=== PATIENT | male | born 1965 | race Caucasian/White ===

== ENCOUNTER → 2016-12-21 | Outpatient (CLI) | payer BC, OTHER ==
[~2016-12-21] MED LIST: AMOX500C3 PO; ASPI81TA28 PO; CIPR1TAB11 PO; CRAN1CAP15 PO; DIGO0.1219 PO; METO-157 PO; NITR1CAP32 PO; SODI1ENE PR
[2016-12-21 16:30] LABS: URINE APPEARANCE CLEAR (CLEAR); URINE BILIRUBIN NEG (NEG); URINE COLOR YELLOW; URINE NITRITE NEG (NEG); URINE SPECIFIC GRAVITY 1.009 (1.000-1.030); UROBILINOGEN NEG (NEG)
[2016-12-21 16:33] LABS: MANUAL MICROSCOPIC REQUIRED? NO; REVIEW REQ? NO
== END | disposition home or self-care (01) ==
LOC: C.LABSPEC 14:28
PROVIDERS: ATTEND Internal Medicine Infectious Disease
DX: N39.0 Urinary tract infection, site not specified (principal)

== ENCOUNTER → 2017-01-03 | Outpatient (CLI) | payer BC, OTHER ==
[2017-01-03 09:42] LABS: URINE APPEARANCE CLEAR (CLEAR); URINE BILIRUBIN NEG (NEG); URINE COLOR YELLOW; URINE EPITHELIAL CELL AUTO 20-30 /lpf (0-5); URINE NITRITE NEG (NEG); URINE SPECIFIC GRAVITY 1.018 (1.000-1.030); UROBILINOGEN NEG (NEG)
[2017-01-03 09:43] LABS: MANUAL MICROSCOPIC REQUIRED? NO; REVIEW REQ? NO
== END | disposition home or self-care (01) ==
LOC: C.LABSPEC 08:52
PROVIDERS: ATTEND Family Medicine
DX: A49.8 Other bacterial infections of unspecified site (principal)

== ENCOUNTER 2017-01-21 16:29 | Inpatient (IN) | payer BC, OTHER ==
[~2017-01-21] VITALS: Ht 193 cm; Wt 61.6 kg
[~2017-01-21 16:29] MED LIST changes: -AMOX500C3 PO; -METO-157 PO; -NITR1CAP32 PO
[2017-01-21] MEDS ORDERED: SODIUM CHLORIDE 0.9% 1000ML 500 ML IV ONE ×2 (16:42)
[2017-01-21] MEDS ORDERED: CEFEPIME IV 2,000 MG in DEXTROSE 5% 100ML 100 ML IV STA (16:57)
[2017-01-21] MEDS ORDERED: DAPTOmycin IV 350 MG in SODIUM CHLORIDE 0.9% 50ML 50 ML IV STA (16:59)
[2017-01-21] MEDS ORDERED: AMOX500C3 PO (17:10)
--- NOTE | 2017-01-21 17:11 | EMERGENCY ROOM VISIT NOTE ---
History Report prepared by Pilar: Mile Sweet Under the Supervision of: Dr. Belem Schuler M.D. First contact with patient: 16:35 Chief Complaint: URINARY SYMPTOMS Stated Complaint: UTI Nursing Triage Summary: UTI for one year. "Sore bladder. Sediment every once in a while." Scope sceduled 01/31 with Gavin BARRAZA. History of Present Illness The patient is a 51 year old male who presents to the Emergency Room with complaints of a worsening UTI beginning SUPPLIER QUALITY ENGINEER. The patient reports feeling nauseated last night and dry heaving. He is quadriplegic and catheterizes daily. He states that last night they had difficulty catheterizing him and he reports some sediment in his urine. He states that his bladder feels sore. The patient also reports feeling generally tired and he has a headache. This morning he had a fever with a temperature of 101. He took Tylenol for his fever at 1230. The patient denies cough and shortness of breath. His stool has been normal. He currently rotates 3 antibiotics as preventative treatment for his frequent UTIs. These antibiotics are amoxicillin, Cipro, and Macrobid. He was supposed to start the Macrobid yesterday, and he took one pill last night. This morning since he was not feeling well he took the amoxicillin instead. The patient rates his current pain as a 2/10 in severity. Source of History: patient, parent Onset: SUPPLIER QUALITY ENGINEER Position: other (urinary) Symptom Intensity: 2/10 Quality: other (soreness) Timing: worsening Modifying Factors (Worsening): urination Modifying Factors (Relieving): tylenol Associated Symptoms: + fatigue, + fevers, + headache, + nausea, + vomiting Review of Systems See HPI for pertinent positives & negatives. A total of 10 systems reviewed and were otherwise negative. Past Medical & Surgical Medical Problems: (1) Autonomic dysfunction (2) Fever (3) History of recurrent UTIs (4) Hypotension (5) Neurogenic bladder (6) Paroxysmal atrial fibrillation (7) Quadriplegia following spinal cord injury Family History FH: CAD (coronary artery disease) FATHER GRANDFATHER Social History Smoking Status: Never Smoker Drug Use: none Marital Status: single Housing Status: lives with family Occupation Status: employed Current/Historical Medications Scheduled Amoxicillin (Amoxil), 500 MG PO TID Aspirin (Aspirin Ec), 81 MG PO DAILY Cranberry-Vitamin C-Vitamin E (Cranberry), 2 CAP PO TID Digoxin (Digox), 0.125 MG PO DAILY Metoclopramide (Reglan), 10 MG PO ACHS Nitrofurantoin Macrocrystals (Macrodantin), 100 MG PO BID Sodium Phosphates (Fleet Enema Six Pack), 19 GM [place] Q2D Allergies Coded Allergies: Bacitracin (Verified Allergy, Unknown, blisters, 07/17/16) Iodinated Diagnostic Agents (Verified Allergy, Unknown, UNKNOWN, 07/17/16) Neomycin (Verified Allergy, Unknown, blisters, 07/17/16) Polymyxin B (Verified Allergy, Unknown, blisters, 07/17/16) Quinolones (Verified Allergy, Unknown, cipro OK SUPPLIER QUALITY ENGINEER [id number], 07/17/16) Physical Exam Vital Signs Date Time Temp Pulse Resp B/P Pulse Ox O2 Delivery O2 Flow Rate FiO2 01/21/17 18:45 36.9 01/21/17 18:22 55 16 131/104 96 Room Air 01/21/17 17:56 01/21/17 17:54 58 20 103/63 94 Room Air 01/21/17 17:10 49 01/21/17 17:10 93 Room Air 01/21/17 16:32 37.0 72 16 68/42 97 Room Air Physical Exam Vital signs reviewed. General: Cachetic-appearing 51 year old male, in no significant distress. HEENT: No scleral icterus, PERRLA, neck supple. Atraumatic. Cardiovascular: Regular rate and rhythm, no extra sounds. Pulmonary: Clear to auscultation bilaterally, normal work of breathing. Abdomen: Soft, nontender, nondistended, positive bowel sounds. Musculoskeletal: Atraumatic, chronic deformity of the right lower extremity distally. Neurologic: Patient awake alert and oriented x 3. Cranial nerves 2 through 12 grossly intact. Patient has some movement of the bilateral upper extremities and is paralyzed from the mid chest distally. Skin: Warm, dry, no rash Medical Decision & Procedures ER Provider Diagnostic Interpretation: Radiology results as stated below per my review and radiologist interpretation: SINGLE VIEW CHEST CLINICAL HISTORY: Sepsis. FINDINGS: 2 AP, portable, upright chest radiographs are compared to study dated 07/17/2016. Correlation is made with abdominal CT dated 07/11/2016. The examination is degraded by portable technique and patient rotation. The cardiomediastinal silhouette is normal for projection. Apparent enlargement the cardiac silhouette is related to a pectus deformity. Scarring at the left lung base is unchanged. Pulmonary hyperinflation is again noted and emphysematous change is suspected. No airspace consolidation or large pleural effusion is identified. No pneumothorax is seen. The bony thorax is grossly intact. IMPRESSION: No acute cardiopulmonary abnormality and no significant change from 07/17/2016. Electronically signed by: Tobin Noel M.D. 01/21/2017 5:08 PM Dictated Date/Time: 01/21/2017 5:06 PM Laboratory Results Test 01/21/17 17:25 01/21/17 17:33 01/21/17 17:35 Urine Color YELLOW Urine Appearance CLEAR (CLEAR) Urine pH 7.5 (4.5-7.5) Urine Specific [place] 1.007 (1.000-1.030) Urine Protein NEG (NEG) Urine Glucose (UA) NEG (NEG) Urine Ketones NEG (NEG) Urine Occult Blood NEG (NEG) Urine Nitrite NEG (NEG) Urine Bilirubin NEG (NEG) Urine Urobilinogen NEG (NEG) Urine Leukocyte Esterase NEG (NEG) Urine WBC (Auto) 1-5 /hpf (0-5) Urine RBC (Auto) 10-30 /hpf (0-4) Urine Hyaline Casts (Auto) 0 /lpf (0-5) Urine Epithelial Cells (Auto) 20-30 /lpf (0-5) Urine Bacteria (Auto) NEG (NEG) Bedside Lactic Acid Venous 0.56 mmol/L (0.90-1.70) Immature Granulocyte % (Auto) 0.0 % White Blood Count 4.71 K/uL (4.8-10.8) Red Blood Count 4.20 M/uL (4.7-6.1) Hemoglobin 11.8 g/dL (14.0-18.0) Hematocrit 35.5 % (42-52) Mean Corpuscular Volume 84.5 fL (80-100) Mean Corpuscular Hemoglobin 28.1 pg (25-34) Mean Corpuscular Hemoglobin Concent 33.2 g/dl (32-36) Platelet Count 137 K/uL (130-400) Mean Platelet Volume 11.2 fL (7.4-10.4) Neutrophils (%) (Auto) 77.5 % Lymphocytes (%) (Auto) 7.0 % Monocytes (%) (Auto) 10.2 % Eosinophils (%) (Auto) 4.7 % Basophils (%) (Auto) 0.6 % Neutrophils # (Auto) 3.65 K/uL (1.4-6.5) Lymphocytes # (Auto) 0.33 K/uL (1.2-3.4) Monocytes # (Auto) 0.48 K/uL (0.11-0.59) Eosinophils # (Auto) 0.22 K/uL (0-0.5) Basophils # (Auto) 0.03 K/uL (0-0.2) Immature Granulocyte # (Auto) 0.00 K/uL (0.00-0.02) Prothrombin Time 12.9 SECONDS (9.0-12.0) Prothromb Time International Ratio 1.2 (0.9-1.1) Activated Partial Thromboplast Time 30.2 SECONDS (21.0-31.0) Partial Thromboplastin Ratio 1.2 Total Bilirubin 2.0 mg/dl (0.2-1) Aspartate Amino Transf (AST/SGOT) 14 U/L (15-37) Alanine Aminotransferase (ALT/SGPT) 14 U/L (12-78) Alkaline Phosphatase 57 U/L (45-117) Total Protein 6.5 gm/dl (6.4-8.2) Albumin 3.5 gm/dl (3.4-5.0) Globulin 3.0 gm/dl (2.5-4.0) Albumin/Globulin Ratio 1.2 (0.9-2) Procalcitonin < 0.05 ng/mL (0-0.5) Digoxin Level 0.6 ng/ml (0.8-2.0) Laboratory results per my review. Medications Administered Medications (Trade) Dose Ordered Sig/Valeria Route Start Time Stop Time Status Last Admin Dose Admin Sodium Chloride 500 ml @ 999 mls/hr Q31M ONCE IV 01/21/17 16:42 01/21/17 17:12 DC 01/21/17 17:48 999 MLS/HR Sodium Chloride 500 ml @ 999 mls/hr Q31M ONCE IV 01/21/17 16:42 01/21/17 17:12 DC 01/21/17 17:53 999 MLS/HR Cefepime HCl 2000 mg/Dextrose 122.6 ml @ 200 mls/hr NOW STAT IV 01/21/17 16:57 01/21/17 17:33 DC 01/21/17 18:43 200 MLS/HR Daptomycin/Sodium Chloride (Cubicin IV/Nss 50ml) 57 ml @ 100 mls/hr NOW STAT IV 01/21/17 16:59 01/21/17 17:33 DC 01/21/17 18:02 100 MLS/HR ECG Indication: nausea Rate (beats per minute): 50 Rhythm: sinus bradycardia Findings: RBBB (incomplete), other (right axis deviation) ED Course 1635: Past medical records reviewed. The patient was evaluated in room A4B. A complete history and physical examination was performed. 1642: NSS 500 ml @ 999 mls/hr IV, NSS 500 ml @ 999 mls/hr IV 1657: Cefepime HCl 2000 mg/Dextrose 122.6 ml @ 200 mls/hr IV 165: Daptomycin 350 mg/Sodium Chloride 57 ml @ 100 mls/hr IV 182: I reassessed the patient at this time. He is feeling better and resting comfortably. I discussed the results and treatment plan with the patient. I answered all pertaining questions that he had. He expressed understanding and verbalized agreement. 184: I spoke with Varsha Perera PA-C. We discussed the patient's results and treatment plan. The patient will be evaluated by the [facility] for further management. Medical Decision Differential diagnoses includes influenza, other viral illness, pneumonia, urinary tract infection, metabolic abnormality, medication effect, cellulitis, meningitis, intra-abdominal source. This patient was evaluated and appeared to be in no significant distress. Physical examination reveals a marked hypotension with a systolic pressure in the 60s. Blood cultures were obtained and the patient was hydrated with normal saline solution. Laboratory work reveals a mild leukopenia. Patient's lactic acid is normal. BUN/creatinine are within normal range. Patient's EKG reveals a right bundle branch block. Patient was medicated with IV cefepime as the last 3 organisms grown from his urine are susceptible to cefepime. The patient was also given IV daptomycin for the possibility of an underlying sepsis. The patient was feeling much improved after IV hydration. I'm concerned due to the hypotension and reported fever. The patient seems to have stabilized his vital signs. He will be evaluated by the hospitalist service for admission and further management. He and his family are aware of the plan and agree. Consults Time Called: 1834 Consulting Physician: Varsha Perera PA-C Returned Call: 1841 I spoke with Varsha Perera PA-C. We discussed the patient's results and treatment plan. The patient will be evaluated by the [facility] for further management. Impression Primary Impression: Fever Additional Impressions: Hypotension Quadriplegia following spinal cord injury Critical Care I have personally spent greater than 30 minutes of critical care time in the direct management of this patient. This includes bedside care, interpretation of diagnostic studies, and testing, discussion with consultants, patient, and family members, and other required patient management activities. This 30 minutes is in excess of all separately billable procedures. Scribe Attestation The scribe's documentation has been prepared under my direction and personally reviewed by me in its entirety. I confirm that the note above accurately reflects all work, treatment, procedures, and medical decision making performed by me. Departure Information Dispostion Being Evaluated By Hospitalist Referrals Jarrell Bishop III, M.D. (PCP) Patient Instructions My [facility] Problem Qualifiers Primary Impression: Fever Fever type: unspecified Qualified Codes: R50.9 - Fever, unspecified Additional Impressions: Hypotension Hypotension type: unspecified hypotension type Qualified Codes: I95.9 - Hypotension, unspecified
[2017-01-21] MEDS ORDERED: NITR1CAP32 PO (17:12)
[2017-01-21] MEDS ORDERED: METO-157 PO (17:14)
[2017-01-21 18:00] LABS: BASO % 0.6 %; BASO ABS # 0.03 K/uL (0-0.2); COMPLETE YES; EOS % 4.7 %; HEMATOCRIT 35.5 % (42-52); LYMPH ABS # 0.33 K/uL (1.2-3.4); MEAN CELL VOLUME 84.5 fL (80-100); MEAN CORPUSCULAR HEMOGLOBIN 28.1 pg (25-34); MEAN CORPUSCULAR HGB CONC 33.2 g/dl (32-36); MEAN PLATELET VOLUME 11.2 fL (7.4-10.4); MONO % 10.2 %; NEUT % 77.5 %; PLATELET COUNT 137 K/uL (130-400); WHITE BLOOD COUNT 4.71 K/uL (4.8-10.8)
[2017-01-21 18:09] LABS: URINE APPEARANCE CLEAR (CLEAR); URINE BILIRUBIN NEG (NEG); URINE COLOR YELLOW; URINE EPITHELIAL CELL AUTO 20-30 /lpf (0-5); URINE NITRITE NEG (NEG); URINE PH 7.5 (4.5-7.5); URINE SPECIFIC GRAVITY 1.007 (1.000-1.030); UROBILINOGEN NEG (NEG); ZZURINE CULT IF INDIC CATH NO
[2017-01-21 18:09] LABS: ALT/SGPT 14 U/L (12-78); AST/SGOT 14 U/L (15-37); BLOOD UREA NITROGEN 6 mg/dl (7-18); BUN/CREATININE RATIO 15.5 (10-20); CALCIUM 8.6 mg/dl (8.5-10.1); CARBON DIOXIDE 30 mmol/L (21-32); CHLORIDE 108 mmol/L (98-107); CREATININE 0.41 mg/dl (0.60-1.40); GLUCOSE 99 mg/dl (70-99); POTASSIUM 3.7 mmol/L (3.5-5.1); SODIUM 145 mmol/L (136-145)
[2017-01-21 18:10] LABS: INR 1.2 (0.9-1.1); PARTIAL THROMBOPLASTIN RATIO 1.2; PROTHROMBIN TIME (PATIENT) 12.9 SECONDS (9.0-12.0)
[2017-01-21 18:12] LABS: ALB/GLOB RATIO 1.2 (0.9-2); ALKALINE PHOSPHATASE 57 U/L (45-117)
[2017-01-21 18:14] LABS: MANUAL MICROSCOPIC REQUIRED? NO; REVIEW REQ? NO
[2017-01-21] MEDS ORDERED: ACETAMINOPHEN 325 MG TAB PO PRN (19:15)
[2017-01-21] MEDS ORDERED: ONDANSETRON INJ 2 MG/ML 2 ML VIAL IV PRN (19:15)
--- NOTE | 2017-01-21 19:35 | History and Physical ---
History & Physical Date & Time of Service: Jan 21, 2017 at 19:21 Chief Complaint: UTI Primary Care Physician: Jarrell Bishop III, M.D. History of Present Illness Source: patient, family, clinic records, hospital records Patient seen and examined. 51 year old male with PMHx of quadriplegia, PAF and persistent UTIs presents to the ED complaining of urinary symptoms x 2 days. Patient is cathed daily and reports yesterday he started having bladder spasms, nausea, and one episode of vomiting. He reports today he feels lightheaded and very tired. He states his urine appeared concentrated. At home he took his temperature and it was 101. He took Tylenol and came to the ED. Patient is on rotating abx for chronic UTIs. He follows with infectious disease. He is currently taking Amoxil He denies URI symptoms, chest pain, SOB, diarrhea, rashes. On arrival patients SBP was 60, he had rigors. Lactate is normal, there is no leukocytosis, UA was clear CXR was without infection. He received IVFs and his BP improved. He empirically treated with cefepime and daptomycin for possible infection. He will be admitted for further workup and treatment. Past Medical/Surgical History Medical Problems: (1) Autonomic dysfunction Status: Chronic (2) History of recurrent UTIs Status: Chronic (3) Neurogenic bladder Status: Chronic (4) Paroxysmal atrial fibrillation Status: Chronic (5) Quadriplegia following spinal cord injury Status: Chronic Family History FH: CAD (coronary artery disease) FATHER GRANDFATHER Social History Smoking Status: Never Smoker Alcohol Use: none Drug Use: none Marital Status: single Housing status: lives with family Occupational Status: employed Immunizations History of Influenza Vaccine: Yes Multi-Drug Resistant Organisms History of MDRO: No Allergies Coded Allergies: Bacitracin (Verified Allergy, Unknown, blisters, 07/17/16) Iodinated Diagnostic Agents (Verified Allergy, Unknown, UNKNOWN, 07/17/16) Neomycin (Verified Allergy, Unknown, blisters, 07/17/16) Polymyxin B (Verified Allergy, Unknown, blisters, 07/17/16) Quinolones (Verified Allergy, Unknown, cipro 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 A total of 10 systems reviewed and were otherwise negative. Physical Exam Vital Signs Date Time Temp Pulse Resp B/P Pulse Ox O2 Delivery O2 Flow Rate FiO2 01/21/17 18:45 36.9 01/21/17 18:22 55 16 131/104 96 Room Air 01/21/17 17:56 01/21/17 17:54 58 20 103/63 94 Room Air 01/21/17 17:10 49 01/21/17 17:10 93 Room Air 01/21/17 16:32 37.0 72 16 68/42 97 Room Air General Appearance: + pertinent finding (Very pleasant cachetic appearing 51 year old male lying in bed in NAD with mother at bedside ) Head: normocephalic, atraumatic Eyes: PERRL, EOMI, sclerae normal ENT: hearing grossly normal, pharynx normal Neck: supple, no JVD Respiratory/Chest: chest non-tender, lungs clear, normal breath sounds, no respiratory distress, no accessory muscle use Cardiovascular: regular rate, rhythm, no edema, no gallop, no JVD, no murmur, normal peripheral pulses Abdomen/GI: normal bowel sounds, non tender, soft Extremities/Musculoskelatal: normal capillary refill, + pertinent finding ( some movement of BLUE, no motor or sensory activty BLLE ) Neurologic/Psych: alert, oriented x 3, + pertinent finding (quadrapalegic ) Skin: normal color, warm/dry, no rash Lymphatic: no adenopathy Diagnostics Laboratory Results Results Past 24 Hours Test 01/21/17 17:25 01/21/17 17:33 01/21/17 17:35 01/21/17 18:45 Range/Units Urine Color YELLOW Urine Appearance CLEAR CLEAR Urine pH 7.5 4.5-7.5 Urine Specific [place] 1.007 1.000-1.030 Urine Protein NEG NEG Urine Glucose (UA) NEG NEG Urine Ketones NEG NEG Urine Occult Blood NEG NEG Urine Nitrite NEG NEG Urine Bilirubin NEG NEG Urine Urobilinogen NEG NEG Urine Leukocyte Esterase NEG NEG Urine WBC (Auto) 1-5 0-5 /hpf Urine RBC (Auto) 10-30 0-4 /hpf Urine Hyaline Casts (Auto) 0 0-5 /lpf Urine Epithelial Cells (Auto) 20-30 0-5 /lpf Urine Bacteria (Auto) NEG NEG Bedside Lactic Acid Venous 0.56 0.90-1.70 mmol/L White Blood Count 4.71 4.8-10.8 K/uL Red Blood Count 4.20 4.7-6.1 M/uL Hemoglobin 11.8 14.0-18.0 g/dL Hematocrit 35.5 42-52 % Mean Corpuscular Volume 84.5 80-100 fL Mean Corpuscular Hemoglobin 28.1 25-34 pg Mean Corpuscular Hemoglobin Concent 33.2 32-36 g/dl Platelet Count 137 130-400 K/uL Mean Platelet Volume 11.2 7.4-10.4 fL Neutrophils (%) (Auto) 77.5 % Lymphocytes (%) (Auto) 7.0 % Monocytes (%) (Auto) 10.2 % Eosinophils (%) (Auto) 4.7 % Basophils (%) (Auto) 0.6 % Neutrophils # (Auto) 3.65 1.4-6.5 K/uL Lymphocytes # (Auto) 0.33 1.2-3.4 K/uL Monocytes # (Auto) 0.48 0.11-0.59 K/uL Eosinophils # (Auto) 0.22 0-0.5 K/uL Basophils # (Auto) 0.03 0-0.2 K/uL RDW Standard Deviation 45.9 36.4-46.3 fL RDW Coefficient of Variation 14.8 11.5-14.5 % Immature Granulocyte % (Auto) 0.0 % Immature Granulocyte # (Auto) 0.00 0.00-0.02 K/uL Prothrombin Time 12.9 9.0-12.0 SECONDS Prothromb Time International Ratio 1.2 0.9-1.1 Activated Partial Thromboplast Time 30.2 21.0-31.0 SECONDS Partial Thromboplastin Ratio 1.2 Sodium Level 145 136-145 mmol/L Potassium Level 3.7 3.5-5.1 mmol/L Chloride Level 108 98-107 mmol/L Carbon Dioxide Level 30 21-32 mmol/L Anion Gap 7.0 3-11 mmol/L Blood Urea Nitrogen 6 7-18 mg/dl Creatinine 0.41 0.60-1.40 mg/dl Est Creatinine Clear Calc Drug Dose 179.7 ml/min Estimated GFR () > 150.0 Estimated GFR (Non- 138.1 BUN/Creatinine Ratio 15.5 10-20 Random Glucose 99 70-99 mg/dl Calcium Level 8.6 8.5-10.1 mg/dl Total Bilirubin 2.0 0.2-1 mg/dl Aspartate Amino Transf (AST/SGOT) 14 15-37 U/L Alanine Aminotransferase (ALT/SGPT) 14 12-78 U/L Alkaline Phosphatase 57 45-117 U/L Total Protein 6.5 6.4-8.2 gm/dl Albumin 3.5 3.4-5.0 gm/dl Globulin 3.0 2.5-4.0 gm/dl Albumin/Globulin Ratio 1.2 0.9-2 Test 01/21/17 19:04 Range/Units Microbiology Results 01/21/17 Blood Culture, Received Pending 01/21/17 Blood Culture, Received Pending 01/21/17 Urine Culture, Received Pending Diagnostic Radiology CXR Per radiologist read: IMPRESSION: No acute cardiopulmonary abnormality and no significant change from 07/17/2016. Impression Assessment and Plan 51 year old male present to the ED complaining of urinary symptoms, fevers prior to arrival HYPOTENSION -Admit to tele -SBP 60 upon arrival improved after 1L NSS -does not appear secondary to dehydration as renal function is stable. R/O Sepsis -Fever at home, hypotension. No leukocytosis, lactate normal, UA clear, CXR without consolidation -Check procalcitonin, Flu -panculture pending -continue empiric abx treatment with daptomycin and cefepime pharmacy consulted for dosing -continue gentle IVF hydration CHRONIC URINARY TRACT INFECTIONS -follows with Lynsey Evans ([facility]) -on rotating abx scheduled -UA clean today, recently grew e.coli, Enterobacter and pseudomonas -urine culture pending -hold po Abx while on cefepime and daptomycin -Consider ID consult, defer to AM provider PAROXYSMAL ATRIAL FIBRILLATION -stable -check digoxin level -continue Aspirin -continue Digoxin QUADRIPLEGIA DVT PROPHYLAXIS: Sq Lovenox CODE STATUS: FULL CODE DISPO:In my clinical judgment this beneficiary meets acute admission criteria, established by [facility], that includes being hospitalized through two midnights. Patient seen in collaboration with Dr. Pandey Attending Addendum Patient seen and examined with family at bedside. 51 year old male with PMHx of quadriplegia, PAF, recurrent UTI presents to the ED for urinary symptoms that started about 2 days. Pt said that he has been having some bladder spam and said that his urine looks concentrated. he said that he had a fever this morning with Temp 101. he took tylenol and came to the ER. denies any SOB, palpitation. General- No acute distress Head- atraumatic Eyes- PERRL, EOMI ENT- oropharynx clear Neck- supple, no JVD Lungs- clear to auscultation, no wheezing Heart- regular rhythm; no murmur Abdomen- normal bowel sounds, soft Neuro- alert, oriented x 3, quadriplegia Skin- warm & dry A/P Fever associated with hypotension Need to r/o sepsis etiology unknown UA, CXR are negative, no leukocytosis and lactate normal Received Dapto and cefepime in the ER Will continue emperical abx for now check procalcitonin, if negative will d/c abx check blood cx, rapid flu test continue IVF will monitor closely in telemetry Lab, imaging, EKG reviewed Please refer to Varsha ARAGON documentation for other problems Uriel Pandey MD VTE Prophylaxis VTE Risk Assessment Done? Y/N: Yes Risk Level: Moderate
[2017-01-21] MEDS ORDERED: CEFEPIME CONSULT ACTIVE PRN ×2 (19:45)
[2017-01-21] MEDS ORDERED: DAPTOMYCIN CONSULT ACTIVE PRN ×2 (19:45)
[2017-01-21 20:48] LABS: INFLUENZA A PCR Neg for Influ A (NEG); INFLUENZA B PCR Neg for Influ B (NEG)
[2017-01-21] MEDS ORDERED: [UNRECOGNIZED DRUG - OTHER] PO SCH (21:00)
[2017-01-21 21:12] VITALS: BP 83/50; PULSE 67; TEMP 37.4; O2SAT 94; Ht 193 cm; Wt 61.6 kg
[2017-01-21] MEDS: ENOXAPARIN 30 MG/0.3 ML SYR SC SCH (21:44)
[2017-01-21] MEDS: SODIUM CHLORIDE 0.9% 1000ML 1,000 ML IV SCH (21:44)
[2017-01-22] VITALS (12 sets, daily range): BP systolic 88–144; BP diastolic 51–95; PULSE 54–83; TEMP 36.9–38.2; O2SAT 94–98
[2017-01-22] MEDS: CEFEPIME IV 2000 MG in DEXTROSE 5% 100ML IV SCH ×3 (04:04→20:32)
[2017-01-22] MEDS: METOCLOPRAMIDE HCL 10 MG TAB PO SCH ×5 (04:08→20:33)
[2017-01-22] MEDS: SODIUM CHLORIDE 0.9% 1000ML 1,000 ML IV SCH ×2 (05:32→15:51)
[2017-01-22 05:41] LABS: HEMATOCRIT 30.2 % (42-52); MEAN CELL VOLUME 86.3 fL (80-100); MEAN CORPUSCULAR HEMOGLOBIN 28.3 pg (25-34); MEAN CORPUSCULAR HGB CONC 32.8 g/dl (32-36); MEAN PLATELET VOLUME 11.1 fL (7.4-10.4); PLATELET COUNT 115 K/uL (130-400); WHITE BLOOD COUNT 3.48 K/uL (4.8-10.8)
[2017-01-22 06:22] LABS: BLOOD UREA NITROGEN 5 mg/dl (7-18); BUN/CREATININE RATIO 13.7 (10-20); CALCIUM 7.4 mg/dl (8.5-10.1); CARBON DIOXIDE 27 mmol/L (21-32); CHLORIDE 109 mmol/L (98-107); GLUCOSE 106 mg/dl (70-99); MAGNESIUM 1.9 mg/dl (1.8-2.4); POTASSIUM 3.2 mmol/L (3.5-5.1); SODIUM 143 mmol/L (136-145)
[2017-01-22] MEDS ORDERED: POTASSIUM CHLORIDE 10 MEQ TABCR PO STA (07:51)
[2017-01-22] MEDS ORDERED: SOD PHOSPHATE/SOD BIPHOSPHATE ENEMA 132 ML BTL PR PRN (09:00)
[2017-01-22] MEDS: ASPIRIN 81 MG ECTAB PO SCH (09:28)
--- NOTE | 2017-01-22 11:03 | Progress Note ---
Internal Med Progress Note Date of Service: Jan 22, 2017. Provider Documentation: SUBJECTIVE: The patient was seen and examined in presence of the Father Feels better following admission Denies any symptoms OBJECTIVE: Vital Signs-as noted below Exam: General-No distress Eyes-normal ENT-normal Neck-supple Lungs-Clear to auscultate bilaterally Heart-Regular,no murmur appreciated Abdomen-Benign,no masses,bowel sound present Extremities-No edema Neuro-AAOx3 Has Quadriplegia ,legs worse than the UE Lab data as noted below. ASSESSMENT & PLAN: HYPOTENSION -likely secondary to UTI -SBP 60 upon arrival improved after 1L NSS -Fever at home, hypotension. No leukocytosis, lactate normal, UA clear, CXR without consolidation -Check procalcitonin, Flu-negative for any sepsis -Blood and Urine c/s sent -continue empiric abx treatment with daptomycin and cefepime pharmacy consulted for dosing -continue gentle IVF hydration -Systolic Blood pressure >100 CHRONIC URINARY TRACT INFECTIONS May have another one -follows with Lynsey Evans ([facility]) -on rotating abx scheduled -Self catheterization as needed at home due to neurogenic bladder -UA clean today, recently grew e.coli, Enterobacter and pseudomonas -urine and blood cultures pending -Started on cefepime and daptomycin -Consider ID consult, defer to AM provider PAROXYSMAL ATRIAL FIBRILLATION -stable -check digoxin level -continue Aspirin -continue Digoxin QUADRIPLEGIA 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 DVT PROPHYLAXIS: Sq Lovenox CODE STATUS: FULL CODE DISPO: Awaited Vital Signs: Date Time Temp Pulse Resp B/P Pulse Ox O2 Delivery O2 Flow Rate FiO2 01/22/17 07:35 37.4 83 20 102/67 95 Room Air 01/22/17 04:00 94 Room Air 01/22/17 03:56 37.8 70 18 104/59 96 Room Air 01/22/17 00:00 38.2 72 18 88/51 95 Room Air 01/22/17 00:00 95 Room Air 01/21/17 21:12 37.4 67 18 83/50 94 Room Air 01/21/17 20:20 87 20 112/81 97 01/21/17 18:45 36.9 01/21/17 18:22 55 16 131/104 96 Room Air 01/21/17 17:56 01/21/17 17:54 58 20 103/63 94 Room Air 01/21/17 17:10 49 01/21/17 17:10 93 Room Air 01/21/17 16:32 37.0 72 16 68/42 97 Room Air Lab Results: Results Past 24 Hours Test 01/21/17 17:25 01/21/17 17:33 01/21/17 17:35 01/21/17 19:26 Range/Units Urine Color YELLOW Urine Appearance CLEAR CLEAR Urine pH 7.5 4.5-7.5 Urine Specific Sandy 1.007 1.000-1.030 Urine Protein NEG NEG Urine Glucose (UA) NEG NEG Urine Ketones NEG NEG Urine Occult Blood NEG NEG Urine Nitrite NEG NEG Urine Bilirubin NEG NEG Urine Urobilinogen NEG NEG Urine Leukocyte Esterase NEG NEG Urine WBC (Auto) 1-5 0-5 /hpf Urine RBC (Auto) 10-30 0-4 /hpf Urine Hyaline Casts (Auto) 0 0-5 /lpf Urine Epithelial Cells (Auto) 20-30 0-5 /lpf Urine Bacteria (Auto) NEG NEG Bedside Lactic Acid Venous 0.56 0.90-1.70 mmol/L White Blood Count 4.71 4.8-10.8 K/uL Red Blood Count 4.20 4.7-6.1 M/uL Hemoglobin 11.8 14.0-18.0 g/dL Hematocrit 35.5 42-52 % Mean Corpuscular Volume 84.5 80-100 fL Mean Corpuscular Hemoglobin 28.1 25-34 pg Mean Corpuscular Hemoglobin Concent 33.2 32-36 g/dl Platelet Count 137 130-400 K/uL Mean Platelet Volume 11.2 7.4-10.4 fL Neutrophils (%) (Auto) 77.5 % Lymphocytes (%) (Auto) 7.0 % Monocytes (%) (Auto) 10.2 % Eosinophils (%) (Auto) 4.7 % Basophils (%) (Auto) 0.6 % Neutrophils # (Auto) 3.65 1.4-6.5 K/uL Lymphocytes # (Auto) 0.33 1.2-3.4 K/uL Monocytes # (Auto) 0.48 0.11-0.59 K/uL Eosinophils # (Auto) 0.22 0-0.5 K/uL Basophils # (Auto) 0.03 0-0.2 K/uL RDW Standard Deviation 45.9 36.4-46.3 fL RDW Coefficient of Variation 14.8 11.5-14.5 % Immature Granulocyte % (Auto) 0.0 % Immature Granulocyte # (Auto) 0.00 0.00-0.02 K/uL Prothrombin Time 12.9 9.0-12.0 SECONDS Prothromb Time International Ratio 1.2 0.9-1.1 Activated Partial Thromboplast Time 30.2 21.0-31.0 SECONDS Partial Thromboplastin Ratio 1.2 Sodium Level 145 136-145 mmol/L Potassium Level 3.7 3.5-5.1 mmol/L Chloride Level 108 98-107 mmol/L Carbon Dioxide Level 30 21-32 mmol/L Anion Gap 7.0 3-11 mmol/L Blood Urea Nitrogen 6 7-18 mg/dl Creatinine 0.41 0.60-1.40 mg/dl Est Creatinine Clear Calc Drug Dose 179.7 ml/min Estimated GFR () > 150.0 Estimated GFR (Non- 138.1 BUN/Creatinine Ratio 15.5 10-20 Random Glucose 99 70-99 mg/dl Calcium Level 8.6 8.5-10.1 mg/dl Total Bilirubin 2.0 0.2-1 mg/dl Aspartate Amino Transf (AST/SGOT) 14 15-37 U/L Alanine Aminotransferase (ALT/SGPT) 14 12-78 U/L Alkaline Phosphatase 57 45-117 U/L Total Protein 6.5 6.4-8.2 gm/dl Albumin 3.5 3.4-5.0 gm/dl Globulin 3.0 2.5-4.0 gm/dl Albumin/Globulin Ratio 1.2 0.9-2 Procalcitonin < 0.05 0-0.5 ng/mL Digoxin Level 0.6 0.8-2.0 ng/ml Influenza Type A (RT-PCR) Neg for Influ A NEG Influenza Type A Antigen Neg for Influ A NEG Influenza Type B Antigen Neg for Influ B NEG Influenza Type B (RT-PCR) Neg for Influ B NEG Test 01/22/17 05:05 Range/Units White Blood Count 3.48 4.8-10.8 K/uL Red Blood Count 3.50 4.7-6.1 M/uL Hemoglobin 9.9 14.0-18.0 g/dL Hematocrit 30.2 42-52 % Mean Corpuscular Volume 86.3 80-100 fL Mean Corpuscular Hemoglobin 28.3 25-34 pg Mean Corpuscular Hemoglobin Concent 32.8 32-36 g/dl RDW Standard Deviation 47.9 36.4-46.3 fL RDW Coefficient of Variation 15.1 11.5-14.5 % Platelet Count 115 130-400 K/uL Mean Platelet Volume 11.1 7.4-10.4 fL Sodium Level 143 136-145 mmol/L Potassium Level 3.2 3.5-5.1 mmol/L Chloride Level 109 98-107 mmol/L Carbon Dioxide Level 27 21-32 mmol/L Anion Gap 7.0 3-11 mmol/L Blood Urea Nitrogen 5 7-18 mg/dl Creatinine 0.40 0.60-1.40 mg/dl Est Creatinine Clear Calc Drug Dose 168.1 ml/min Estimated GFR () > 150.0 Estimated GFR (Non- 139.5 BUN/Creatinine Ratio 13.7 10-20 Random Glucose 106 70-99 mg/dl Calcium Level 7.4 8.5-10.1 mg/dl Magnesium Level 1.9 1.8-2.4 mg/dl Microbiology Results 01/21/17 Blood Culture, Received Pending 01/21/17 Blood Culture, Received Pending 01/21/17 Urine Culture, Received Pending
[2017-01-22] MEDS: DIGOXIN 0.125 MG TAB PO SCH (15:53)
[2017-01-22] MEDS: DAPTOmycin IV 350 MG in SODIUM CHLORIDE 0.9% 50ML 50 ML IV SCH (18:27)
[2017-01-22] MEDS: ENOXAPARIN 30 MG/0.3 ML SYR SC SCH (20:33)
[2017-01-23] VITALS (10 sets, daily range): BP systolic 72–118; BP diastolic 42–82; PULSE 57–70; TEMP 37.1–37.7; O2SAT 92–96
[2017-01-23] MEDS: SODIUM CHLORIDE 0.9% 1000ML 1,000 ML IV SCH ×3 (01:15→21:27)
[2017-01-23] MEDS: CEFEPIME IV 2000 MG in DEXTROSE 5% 100ML IV SCH ×3 (04:38→20:30)
[2017-01-23] MEDS: METOCLOPRAMIDE HCL 10 MG TAB PO SCH ×4 (07:00→21:00)
[2017-01-23] MEDS: ASPIRIN 81 MG ECTAB PO SCH (08:48)
--- NOTE | 2017-01-23 13:10 | Progress Note ---
Internal Med Progress Note Date of Service: Jan 23, 2017. Provider Documentation: SUBJECTIVE: The patient was seen and examined in presence of the Father Feels better following admission Denies any symptoms BP was noted to be low 80s this morning Denies any symptoms OBJECTIVE: Vital Signs-as noted below Exam: General-No distress Eyes-normal ENT-normal Neck-supple Lungs-Clear to auscultate bilaterally Heart-Regular,no murmur appreciated Abdomen-Benign,no masses,bowel sound present Extremities-No edema Neuro-AAOx3 Has Quadriplegia ,legs worse than the UE Lab data as noted below. ASSESSMENT & PLAN: HYPOTENSION -likely secondary to UTI -SBP 60 upon arrival improved after 1L NSS -Fever at home, hypotension. No leukocytosis, lactate normal, UA clear, CXR without consolidation -Check procalcitonin, Flu-negative for any sepsis -Blood and Urine c/s sent -continue empiric abx treatment with daptomycin and cefepime pharmacy consulted for dosing -continue gentle IVF hydration -Systolic Blood pressure < 80 this AM,without any symptoms -usually runs at the lower side -continue IVF -will monitor CHRONIC URINARY TRACT INFECTIONS May have another one -follows with Lynsey AGUILAR) -on rotating abx scheduled -Self catheterization as needed at home due to neurogenic bladder -UA clean today, recently grew e.coli, Enterobacter and pseudomonas -urine and blood cultures -negative -Started on cefepime and daptomycin -Continue IV antibiotics for today -likely discharge tomorrow PAROXYSMAL ATRIAL FIBRILLATION -stable -check digoxin level -continue Aspirin -continue Digoxin -rate is controlled QUADRIPLEGIA 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 DVT PROPHYLAXIS: Sq Lovenox CODE STATUS: FULL CODE DISPO: Discharge home tomorrow Vital Signs: Date Time Temp Pulse Resp B/P Pulse Ox O2 Delivery O2 Flow Rate FiO2 01/23/17 12:00 94 Room Air 01/23/17 11:56 37.7 62 16 102/70 93 Room Air 01/23/17 08:00 94 Room Air 01/23/17 07:29 37.3 65 16 80/42 94 Room Air 01/23/17 04:30 92 Room Air 01/23/17 03:29 37.1 57 21 118/82 96 Room Air 01/23/17 00:00 93 Room Air 01/22/17 23:51 37.4 67 22 98/57 94 Room Air 01/22/17 20:00 96 Room Air 01/22/17 19:36 114/75 01/22/17 19:04 37.0 54 23 144/95 98 Room Air 01/22/17 16:00 97 Room Air 01/22/17 15:53 66 01/22/17 15:29 37.1 65 20 98/64 96 Room Air
[2017-01-23] MEDS: DIGOXIN 0.125 MG TAB PO SCH (16:27)
[2017-01-23] MEDS: DAPTOmycin IV 350 MG in SODIUM CHLORIDE 0.9% 50ML 50 ML IV SCH (17:42)
[2017-01-23] MEDS: ENOXAPARIN 30 MG/0.3 ML SYR SC SCH (20:31)
[2017-01-24] VITALS: O2SAT 93
[2017-01-24 00:09] VITALS: BP 83/49
[2017-01-24 03:50] VITALS: BP 102/63; PULSE 72; TEMP 36.9; O2SAT 94
[2017-01-24] MEDS: CEFEPIME IV 2000 MG in DEXTROSE 5% 100ML IV SCH ×2 (04:38→11:30)
[2017-01-24] MEDS: SODIUM CHLORIDE 0.9% 1000ML 1,000 ML IV SCH (07:15)
[2017-01-24 08:00] VITALS: BP 80/51; PULSE 81; TEMP 37.3; O2SAT 93
[2017-01-24] MEDS: METOCLOPRAMIDE HCL 10 MG TAB PO SCH ×2 (08:36→10:56)
[2017-01-24] MEDS: ASPIRIN 81 MG ECTAB PO SCH (08:37)
--- NOTE | 2017-01-24 09:46 | Progress Note ---
Internal Med Progress Note Date of Service: Jan 24, 2017. Provider Documentation: SUBJECTIVE: The patient was seen and examined in presence of the Father Feels better following admission Denies any significant symptoms Ready to be discharged OBJECTIVE: Vital Signs-as noted below Exam: General-No distress at rest Eyes-normal ENT-normal Neck-supple Lungs-Clear to auscultate bilaterally with decreased breath osund bilaterally Heart-Regular,no murmur appreciated Abdomen-Benign,no masses,bowel sound present Extremities-No edema Neuro-AAOx3 Has Quadriplegia ,legs worse than the UE Has Neurogenic Bladder Lab data as noted below. ASSESSMENT & PLAN: HYPOTENSION -likely secondary to UTI -SBP 60 upon arrival improved after 1L NSS -Fever at home, hypotension. No leukocytosis, lactate normal, UA clear, CXR without consolidation -Check procalcitonin, Flu-negative for any sepsis -Blood and Urine c/s sent -continue empiric abx treatment with daptomycin and cefepime pharmacy consulted for dosing -continue gentle IVF hydration -Systolic Blood pressure < 80 this AM,without any symptoms -usually runs at the lower side -continue IVF -SBP runs at a lower level at home -remains stable >80 ,asymptomatic CHRONIC URINARY TRACT INFECTIONS May have another one -follows with Lnysey AGUILAR) -on rotating abx scheduled -Self catheterization as needed at home due to neurogenic bladder -UA clean today, recently grew e.coli, Enterobacter and pseudomonas -urine and blood cultures -negative -Started on cefepime and daptomycin -Continue IV antibiotics for today -Has had 3 days of IV antibiotics -no urinary symptoms and cultures negative PAROXYSMAL ATRIAL FIBRILLATION -stable -check digoxin level -continue Aspirin -continue Digoxin -rate is controlled now -has had a few PVCs last night QUADRIPLEGIA 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 DVT PROPHYLAXIS: Sq Lovenox CODE STATUS: FULL CODE DISPO: Discharge home today OOB in his wheel chair Vital Signs: Date Time Temp Pulse Resp B/P Pulse Ox O2 Delivery O2 Flow Rate FiO2 01/24/17 08:00 37.3 81 18 80/51 93 01/24/17 04:00 Room Air 01/24/17 03:50 36.9 72 18 102/63 94 Room Air 01/24/17 00:09 83/49 01/24/17 00:00 93 Room Air 01/23/17 23:45 37.1 66 18 72/59 94 Room Air 01/23/17 20:00 Room Air 01/23/17 19:27 37.1 70 22 87/49 92 Room Air 01/23/17 16:27 65 01/23/17 16:00 37.6 64 16 104/72 94 Room Air 01/23/17 16:00 94 Room Air 01/23/17 12:00 94 Room Air 01/23/17 11:56 37.7 62 16 102/70 93 Room Air
--- NOTE | 2017-01-24 10:40 | Discharge Instructions ---
Discharge Instructions Date of Service Jan 24, 2017. Admission Reason for Admission: Fever, Hypotension Discharge Discharge Diagnosis / Problem: Fever -no infective source,Prophylaxis to prevent recurrent UTI,Quadriplegi Discharge Goals Goal(s): Prevent Disease Progression Activity Recommendations Activity Limitations: resume your previous activity . Instructions / Follow-Up Instructions / Follow-Up Dr Bishop on 01/27/2017 at 1:50 PM.Please keep appointment with ID Current Hospital Diet Patient's current hospital diet: AHA Diet (Heart Healthy) Discharge Diet Recommended Diet: AHA Diet (Heart Healthy) Pending Studies Studies pending at discharge: no Medical Emergencies . Who to Call and When: Medical Emergencies: If at any time you feel your situation is an emergency, please call 911 immediately. . Non-Emergent Contact Non-Emergency issues call your: Primary Care Provider . Past History Medical & Surgical History: (1) Quadriplegia following spinal cord injury (2) History of recurrent UTIs (3) Paroxysmal atrial fibrillation (4) Neurogenic bladder (5) Autonomic dysfunction (6) Fever (7) Hypotension . "Provider Documentation" section prepared by Tamia Porras. VTE Core Measure Inpt VTE Proph given/why not?: Enoxaparin (Lovenox)SQ
[2017-01-24 10:48] VITALS: BP 80/51; PULSE 81; TEMP 37.3; O2SAT 93
[2017-01-24 10:51] VITALS: BP 107/71; PULSE 64; TEMP 37.2; O2SAT 94
[2017-01-24 10:53] LABS: HEMATOCRIT 33.5 % (42-52); MEAN CELL VOLUME 83.8 fL (80-100); MEAN CORPUSCULAR HEMOGLOBIN 27.8 pg (25-34); MEAN CORPUSCULAR HGB CONC 33.1 g/dl (32-36); MEAN PLATELET VOLUME 10.7 fL (7.4-10.4); PLATELET COUNT 124 K/uL (130-400); WHITE BLOOD COUNT 3.46 K/uL (4.8-10.8)
--- NOTE | 2017-01-24 11:23 | Discharge Summary ---
Discharge Summary Date of Service Jan 24, 2017. Discharge Summary Admission Date: Jan 21, 2017 at 19:05 Discharge Date: Jan 24, 2017 Discharge Disposition: Home with services Principal Diagnosis: Fever -no infective source,Prophylaxis to prevent recurrent UTI,Quadriplegia Secondary Diagnoses/Problems: Please see H&P and progress note Medication Reconciliation Continued Medications: Amoxicillin (Amoxil) 500 Mg Cap 500 MG PO TID for 14 Days, #42 CAP BEGIN 01/07/17 X 14 DAYS Aspirin (Aspirin Ec) 81 Mg Tab 81 MG PO DAILY Cranberry-Vitamin C-Vitamin E (Cranberry) 1 Cap Cap 2 CAP PO TID Digoxin (Digox) 0.125 Mg Tab 0.125 MG PO DAILY, #30 Metoclopramide (Reglan) 10 Mg Tab 10 MG PO ACHS, TAB Nitrofurantoin Macrocrystals (Macrodantin) 100 Mg Cap 100 MG PO BID, CAP BEGIN 01/20/17 X 14 DAYS Sodium Phosphates (Fleet Enema Six Pack) 1 Estela Estela 19 GM DE Q2D Admission Information HPI (per Admitting provider): Patient seen and examined. 51 year old male with PMHx of quadriplegia, PAF and persistent UTIs presents to the ED complaining of urinary symptoms x 2 days. Patient is cathed daily and reports yesterday he started having bladder spasms, nausea, and one episode of vomiting. He reports today he feels lightheaded and very tired. He states his urine appeared concentrated. At home he took his temperature and it was 101. He took Tylenol and came to the ED. Patient is on rotating abx for chronic UTIs. He follows with infectious disease. He is currently taking Amoxil He denies URI symptoms, chest pain, SOB, diarrhea, rashes. On arrival patients SBP was 60, he had rigors. Lactate is normal, there is no leukocytosis, UA was clear CXR was without infection. He received IVFs and his BP improved. He empirically treated with cefepime and daptomycin for possible infection. He will be admitted for further workup and treatment. Past Medical/Surgical History Medical Problems: (1) Autonomic dysfunction Status: Chronic (2) History of recurrent UTIs Status: Chronic (3) Neurogenic bladder Status: Chronic (4) Paroxysmal atrial fibrillation Status: Chronic (5) Quadriplegia following spinal cord injury Status: Chronic Family History FH: CAD (coronary artery disease) FATHER GRANDFATHER Social History Smoking Status: Never Smoker Alcohol Use: none Drug Use: none Marital Status: single Housing status: lives with family Occupational Status: employed Immunizations History of Influenza Vaccine: Yes Multi-Drug Resistant Organisms History of MDRO: No Allergies Coded Allergies: Bacitracin (Verified Allergy, Unknown, blisters, 07/17/16) Iodinated Diagnostic Agents (Verified Allergy, Unknown, UNKNOWN, 07/17/16) Neomycin (Verified Allergy, Unknown, blisters, 07/17/16) Polymyxin B (Verified Allergy, Unknown, blisters, 07/17/16) Quinolones (Verified Allergy, Unknown, cipro OK TRANSFER COORDINATOR [id number], 07/17/16) Home Medications Scheduled Amoxicillin (Amoxil), 500 MG PO TID Aspirin (Aspirin Ec), 81 MG PO DAILY Cranberry-Vitamin C-Vitamin E (Cranberry), 2 CAP PO TID Digoxin (Digox), 0.125 MG PO DAILY Metoclopramide (Reglan), 10 MG PO ACHS Nitrofurantoin Macrocrystals (Macrodantin), 100 MG PO BID Sodium Phosphates (Fleet Enema Six Pack), 19 GM DE Q2D Review of Systems See above for pertinent positives & negatives. A total of 10 systems reviewed and were otherwise negative. Physical Ex - H&P Physical Exam Vital Signs Date Time Temp Pulse Resp B/P Pulse Ox O2 Delivery O2 Flow Rate FiO2 01/21/17 18:45 36.9 01/21/17 18:22 55 16 131/104 96 Room Air 01/21/17 17:56 01/21/17 17:54 58 20 103/63 94 Room Air 01/21/17 17:10 49 01/21/17 17:10 93 Room Air 01/21/17 16:32 37.0 72 16 68/42 97 Room Air General Appearance: + pertinent finding (Very pleasant cachetic appearing 51 year old male lying in bed in NAD with mother at bedside ) Head: normocephalic, atraumatic Eyes: PERRL, EOMI, sclerae normal ENT: hearing grossly normal, pharynx normal Neck: supple, no JVD Respiratory/Chest: chest non-tender, lungs clear, normal breath sounds, no respiratory distress, no accessory muscle use Cardiovascular: regular rate, rhythm, no edema, no gallop, no JVD, no murmur, normal peripheral pulses Abdomen/GI: normal bowel sounds, non tender, soft Extremities/Musculoskelatal: normal capillary refill, + pertinent finding ( some movement of BLUE, no motor or sensory activty BLLE ) Neurologic/Psych: alert, oriented x 3, + pertinent finding (quadrapalegic ) Skin: normal color, warm/dry, no rash Lymphatic: no adenopathy Diagnostics - H&P Diagnostics Laboratory Results Results Past 24 Hours Test 01/21/17 17:25 01/21/17 17:33 01/21/17 17:35 01/21/17 18:45 Range/Units Urine Color YELLOW Urine Appearance CLEAR CLEAR Urine pH 7.5 4.5-7.5 Urine Specific Florien 1.007 1.000-1.030 Urine Protein NEG NEG Urine Glucose (UA) NEG NEG Urine Ketones NEG NEG Urine Occult Blood NEG NEG Urine Nitrite NEG NEG Urine Bilirubin NEG NEG Urine Urobilinogen NEG NEG Urine Leukocyte Esterase NEG NEG Urine WBC (Auto) 1-5 0-5 /hpf Urine RBC (Auto) 10-30 0-4 /hpf Urine Hyaline Casts (Auto) 0 0-5 /lpf Urine Epithelial Cells (Auto) 20-30 0-5 /lpf Urine Bacteria (Auto) NEG NEG Bedside Lactic Acid Venous 0.56 0.90-1.70 mmol/L White Blood Count 4.71 4.8-10.8 K/uL Red Blood Count 4.20 4.7-6.1 M/uL Hemoglobin 11.8 14.0-18.0 g/dL Hematocrit 35.5 42-52 % Mean Corpuscular Volume 84.5 80-100 fL Mean Corpuscular Hemoglobin 28.1 25-34 pg Mean Corpuscular Hemoglobin Concent 33.2 32-36 g/dl Platelet Count 137 130-400 K/uL Mean Platelet Volume 11.2 7.4-10.4 fL Neutrophils (%) (Auto) 77.5 % Lymphocytes (%) (Auto) 7.0 % Monocytes (%) (Auto) 10.2 % Eosinophils (%) (Auto) 4.7 % Basophils (%) (Auto) 0.6 % Neutrophils # (Auto) 3.65 1.4-6.5 K/uL Lymphocytes # (Auto) 0.33 1.2-3.4 K/uL Monocytes # (Auto) 0.48 0.11-0.59 K/uL Eosinophils # (Auto) 0.22 0-0.5 K/uL Basophils # (Auto) 0.03 0-0.2 K/uL RDW Standard Deviation 45.9 36.4-46.3 fL RDW Coefficient of Variation 14.8 11.5-14.5 % Immature Granulocyte % (Auto) 0.0 % Immature Granulocyte # (Auto) 0.00 0.00-0.02 K/uL Prothrombin Time 12.9 9.0-12.0 SECONDS Prothromb Time International Ratio 1.2 0.9-1.1 Activated Partial Thromboplast Time 30.2 21.0-31.0 SECONDS Partial Thromboplastin Ratio 1.2 Sodium Level 145 136-145 mmol/L Potassium Level 3.7 3.5-5.1 mmol/L Chloride Level 108 98-107 mmol/L Carbon Dioxide Level 30 21-32 mmol/L Anion Gap 7.0 3-11 mmol/L Blood Urea Nitrogen 6 7-18 mg/dl Creatinine 0.41 0.60-1.40 mg/dl Est Creatinine Clear Calc Drug Dose 179.7 ml/min Estimated GFR () > 150.0 Estimated GFR (Non- 138.1 BUN/Creatinine Ratio 15.5 10-20 Random Glucose 99 70-99 mg/dl Calcium Level 8.6 8.5-10.1 mg/dl Total Bilirubin 2.0 0.2-1 mg/dl Aspartate Amino Transf (AST/SGOT) 14 15-37 U/L Alanine Aminotransferase (ALT/SGPT) 14 12-78 U/L Alkaline Phosphatase 57 45-117 U/L Total Protein 6.5 6.4-8.2 gm/dl Albumin 3.5 3.4-5.0 gm/dl Globulin 3.0 2.5-4.0 gm/dl Albumin/Globulin Ratio 1.2 0.9-2 Test 01/21/17 19:04 Range/Units Microbiology Results 01/21/17 Blood Culture, Received Pending 01/21/17 Blood Culture, Received Pending 01/21/17 Urine Culture, Received Pending Diagnostic Radiology CXR Per radiologist read: IMPRESSION: No acute cardiopulmonary abnormality and no significant change from 07/17/2016. Impression - H&P Impression Assessment and Plan 51 year old male present to the ED complaining of urinary symptoms, fevers prior to arrival HYPOTENSION -Admit to tele -SBP 60 upon arrival improved after 1L NSS -does not appear secondary to dehydration as renal function is stable. R/O Sepsis -Fever at home, hypotension. No leukocytosis, lactate normal, UA clear, CXR without consolidation -Check procalcitonin, Flu -panculture pending -continue empiric abx treatment with daptomycin and cefepime pharmacy consulted for dosing -continue gentle IVF hydration CHRONIC URINARY TRACT INFECTIONS -follows with Lynsey Evans (ID) -on rotating abx scheduled -UA clean today, recently grew e.coli, Enterobacter and pseudomonas -urine culture pending -hold po Abx while on cefepime and daptomycin -Consider ID consult, defer to AM provider PAROXYSMAL ATRIAL FIBRILLATION -stable -check digoxin level -continue Aspirin -continue Digoxin QUADRIPLEGIA DVT PROPHYLAXIS: Sq Lovenox CODE STATUS: FULL CODE DISPO:In my clinical judgment this beneficiary meets acute admission criteria, established by [facility], that includes being hospitalized through two midnights. Patient seen in collaboration with Dr. Pandey Attending Addendum Patient seen and examined with family at bedside. 51 year old male with PMHx of quadriplegia, PAF, recurrent UTI presents to the ED for urinary symptoms that started about 2 days. Pt said that he has been having some bladder spam and said that his urine looks concentrated. he said that he had a fever this morning with Temp 101. he took tylenol and came to the ER. denies any SOB, palpitation. General- No acute distress Head- atraumatic Eyes- PERRL, EOMI ENT- oropharynx clear Neck- supple, no JVD Lungs- clear to auscultation, no wheezing Heart- regular rhythm; no murmur Abdomen- normal bowel sounds, soft Neuro- alert, oriented x 3, quadriplegia Skin- warm & dry A/P Fever associated with hypotension Need to r/o sepsis etiology unknown UA, CXR are negative, no leukocytosis and lactate normal Received Dapto and cefepime in the ER Will continue emperical abx for now check procalcitonin, if negative will d/c abx check blood cx, rapid flu test continue IVF will monitor closely in telemetry Lab, imaging, EKG reviewed Please refer to Varsha PA documentation for other problems Uriel Pandey MD VTE Prophylaxis VTE Risk Assessment Done? Y/N: Yes Risk Level: Moderate Physical Exam (per Admitting): General Appearance: + pertinent finding (Very pleasant cachetic appearing 51 year old male lying in bed in NAD with mother at bedside ) Head: normocephalic, atraumatic Eyes: PERRL, EOMI, sclerae normal ENT: hearing grossly normal, pharynx normal Neck: supple, no JVD Respiratory/Chest: chest non-tender, lungs clear, normal breath sounds, no respiratory distress, no accessory muscle use Cardiovascular: regular rate, rhythm, no edema, no gallop, no JVD, no murmur , normal peripheral pulses Abdomen/GI: normal bowel sounds, non tender, soft Extremities/Musculoskelatal: normal capillary refill, + pertinent finding ( some movement of BLUE, no motor or sensory activty BLLE ) Neurologic/Psych: alert, oriented x 3, + pertinent finding (quadrapalegic ) Skin: normal color, warm/dry, no rash Lymphatic: no adenopathy Hospital Course HYPOTENSION -likely secondary to UTI -SBP 60 upon arrival improved after 1L NSS -Fever at home, hypotension. No leukocytosis, lactate normal, UA clear, CXR without consolidation -Check procalcitonin, Flu-negative for any sepsis -Blood and Urine c/s sent -continue empiric abx treatment with daptomycin and cefepime pharmacy consulted for dosing -continue gentle IVF hydration -Systolic Blood pressure < 80 this AM,without any symptoms -usually runs at the lower side -continue IVF -SBP runs at a lower level at home -remains stable >80 ,asymptomatic CHRONIC URINARY TRACT INFECTIONS May have another one -follows with Lynsey AGUILAR) -on rotating abx scheduled -Self catheterization as needed at home due to neurogenic bladder -UA clean today, recently grew e.coli, Enterobacter and pseudomonas -urine and blood cultures -negative -Started on cefepime and daptomycin -Continue IV antibiotics for today -Has had 3 days of IV antibiotics -no urinary symptoms and cultures negative PAROXYSMAL ATRIAL FIBRILLATION -stable -check digoxin level -continue Aspirin -continue Digoxin -rate is controlled now -has had a few PVCs last night QUADRIPLEGIA 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 Discharge Instructions Date of Service Jan 24, 2017. Admission Reason for Admission: Fever, Hypotension Discharge Discharge Diagnosis / Problem: Discharge Goals Goal(s): Prevent Disease Progression Activity Recommendations Activity Limitations: resume your previous activity . Instructions / Follow-Up Instructions / Follow-Up Dr Bishop on 01/27/2017 at 1:50 PM.Please keep appointment with ID Current Hospital Diet Patient's current hospital diet: AHA Diet (Heart Healthy) Discharge Diet Recommended Diet: AHA Diet (Heart Healthy) Pending Studies Studies pending at discharge: no Medical Emergencies . Who to Call and When: Medical Emergencies: If at any time you feel your situation is an emergency, please call 911 immediately. . Non-Emergent Contact Non-Emergency issues call your: Primary Care Provider . Past History Medical & Surgical History: (1) Quadriplegia following spinal cord injury (2) History of recurrent UTIs (3) Paroxysmal atrial fibrillation (4) Neurogenic bladder (5) Autonomic dysfunction (6) Fever (7) Hypotension . "Provider Documentation" section prepared by Tamia Porras. VTE Core Measure Inpt VTE Proph given/why not?: Enoxaparin (Lovenox)SQ <Electronically signed by Tamia Porras M.D.> Signed: 01/24/17 1040 Additional Copies To Jarrell Bishop III, M.D.
[2017-01-24 11:30] LABS: BLOOD UREA NITROGEN 6 mg/dl (7-18); BUN/CREATININE RATIO 15.7 (10-20); CALCIUM 7.6 mg/dl (8.5-10.1); CARBON DIOXIDE 26 mmol/L (21-32); CHLORIDE 112 mmol/L (98-107); CREATININE 0.39 mg/dl (0.60-1.40); GLUCOSE 97 mg/dl (70-99); POTASSIUM 3.3 mmol/L (3.5-5.1); SODIUM 145 mmol/L (136-145)
[2017-01-24] MEDS ORDERED: POTASSIUM CHLORIDE 10 MEQ TABCR PO STA (11:37)
== END 2017-01-24 13:54 | disposition home health service (06) | DRG 689 ==
LOC: ENRESERVTM → ENRESERVDT → C.EDB 16:30 → C.2E 19:05
PROVIDERS: ADMIT Internal Medicine; ATTEND Internal Medicine
DX: N39.0 Urinary tract infection, site not specified (principal); G82.50 Quadriplegia, unspecified; N31.9 Neuromuscular dysfunction of bladder, unspecified; I48.0 Paroxysmal atrial fibrillation; I95.9 Hypotension, unspecified; X58.XXXS Exposure to other specified factors, sequela; F45.8 Other somatoform disorders

== ENCOUNTER → 2017-03-13 | Outpatient (CLI) | payer BC ==
[~2017-03-13] MED LIST changes: +AMOX500C3 PO; -CIPR1TAB11 PO; +METO-157 PO; +NITR1CAP32 PO
[2017-03-13 10:14] LABS: BASO % 2.2 %; BASO ABS # 0.06 K/uL (0-0.2); COMPLETE YES; EOS % 5.2 %; HEMATOCRIT 37.7 % (42-52); LYMPH % 37.4 %; LYMPH ABS # 1.01 K/uL (1.2-3.4); MEAN CELL VOLUME 87.5 fL (80-100); MEAN CORPUSCULAR HEMOGLOBIN 28.1 pg (25-34); MEAN CORPUSCULAR HGB CONC 32.1 g/dl (32-36); MEAN PLATELET VOLUME 11.7 fL (7.4-10.4); MONO % 5.9 %; NEUT % 49.3 %; PLATELET COUNT 136 K/uL (130-400); RED BLOOD COUNT 4.31 M/uL (4.7-6.1)
[2017-03-13 10:38] LABS: ALT/SGPT 19 U/L (12-78); AST/SGOT 12 U/L (15-37); BLOOD UREA NITROGEN 11 mg/dl (7-18); BUN/CREATININE RATIO 22.8 (10-20); CALCIUM 8.3 mg/dl (8.5-10.1); CARBON DIOXIDE 27 mmol/L (21-32); CHLORIDE 108 mmol/L (98-107); CREATININE 0.48 mg/dl (0.60-1.40); GLUCOSE 103 mg/dl (70-99); POTASSIUM 3.8 mmol/L (3.5-5.1); SODIUM 143 mmol/L (136-145)
[2017-03-13 10:40] LABS: ALB/GLOB RATIO 1.3 (0.9-2); ALKALINE PHOSPHATASE 46 U/L (45-117)
== END | disposition home or self-care (01) ==
LOC: C.LAB1850 09:11
PROVIDERS: ATTEND Physician Assistant
DX: N39.0 Urinary tract infection, site not specified (principal)

== ENCOUNTER → 2017-04-06 | Outpatient (CLI) | payer BC ==
[2017-04-06 10:49] LABS: URINE APPEARANCE CLEAR (CLEAR); URINE BILIRUBIN NEG (NEG); URINE COLOR YELLOW; URINE NITRITE NEG (NEG); URINE SPECIFIC GRAVITY 1.018 (1.000-1.030); UROBILINOGEN NEG (NEG); ZZURINE CULT IF INDIC CATH NO
[2017-04-06 10:52] LABS: MANUAL MICROSCOPIC REQUIRED? NO; REVIEW REQ? NO
== END | disposition home or self-care (01) ==
LOC: C.LABSPEC 08:49
PROVIDERS: ATTEND Physician Assistant
DX: N39.0 Urinary tract infection, site not specified (principal)

== ENCOUNTER → 2017-04-24 | Outpatient (CLI) | payer BC ==
[2017-04-24 10:01] LABS: BASO % 1.3 %; BASO ABS # 0.04 K/uL (0-0.2); COMPLETE YES; EOS % 4.2 %; HEMATOCRIT 37.3 % (42-52); LYMPH % 29.9 %; LYMPH ABS # 0.93 K/uL (1.2-3.4); MEAN CELL VOLUME 88.2 fL (80-100); MEAN CORPUSCULAR HEMOGLOBIN 28.6 pg (25-34); MEAN CORPUSCULAR HGB CONC 32.4 g/dl (32-36); MEAN PLATELET VOLUME 12.3 fL (7.4-10.4); MONO % 7.7 %; NEUT % 56.9 %; PLATELET COUNT 132 K/uL (130-400); RED BLOOD COUNT 4.23 M/uL (4.7-6.1); WHITE BLOOD COUNT 3.11 K/uL (4.8-10.8)
[2017-04-24 10:31] LABS: ALT/SGPT 15 U/L (12-78); AST/SGOT 10 U/L (15-37); BLOOD UREA NITROGEN 11 mg/dl (7-18); BUN/CREATININE RATIO 23.4 (10-20); CALCIUM 8.5 mg/dl (8.5-10.1); CARBON DIOXIDE 24 mmol/L (21-32); CHLORIDE 108 mmol/L (98-107); CREATININE 0.47 mg/dl (0.60-1.40); GLUCOSE 94 mg/dl (70-99); SODIUM 141 mmol/L (136-145)
[2017-04-24 10:33] LABS: ALB/GLOB RATIO 1.3 (0.9-2); ALKALINE PHOSPHATASE 49 U/L (45-117)
== END | disposition home or self-care (01) ==
LOC: C.LAB1850 09:13
PROVIDERS: ATTEND Physician Assistant
DX: N39.0 Urinary tract infection, site not specified (principal)

== ENCOUNTER → 2017-05-15 | Outpatient (CLI) | payer BC ==
[2017-05-15 10:42] LABS: URINE APPEARANCE CLEAR (CLEAR); URINE BILIRUBIN NEG (NEG); URINE COLOR ORANGE; URINE NITRITE NEG (NEG); URINE SPECIFIC GRAVITY 1.025 (1.000-1.030); UROBILINOGEN NEG (NEG)
[2017-05-15 10:47] LABS: MANUAL MICROSCOPIC REQUIRED? NO; REVIEW REQ? NO
== END | disposition home or self-care (01) ==
LOC: C.LABSPEC 09:37
PROVIDERS: ATTEND Physician Assistant
DX: N39.0 Urinary tract infection, site not specified (principal)

== ENCOUNTER → 2017-10-26 | Outpatient (CLI) | payer BC ==
--- NOTE | 2017-10-26 14:17 | DIAGNOSTIC IMAGING REPORT ---
LEFT FOOT 3 VIEWS CLINICAL HISTORY: Left foot ulceration. FINDINGS: 3 views of the left foot are obtained. No prior studies are available for comparison at the time of dictation. The skeletal structures are osteopenic. No fracture is seen. Mild arthritic change is present at the first metatarsophalangeal joint. The joint spaces of the foot are otherwise maintained. No bony erosion or periostitis is identified. Diffuse soft tissue edema is present throughout the foot. No radiodense foreign body is identified. IMPRESSION: 1. Osteopenia with no acute bony abnormality identified. 2. Diffuse soft tissue edema is present throughout the left foot. Correlate clinically for evidence of cellulitis. Electronically signed by: Tobin Noel M.D. 10/26/2017 2:16 PM Dictated Date/Time: 10/26/2017 2:15 PM
== END | disposition home or self-care (01) ==
LOC: C.RADBC 13:08
PROVIDERS: ATTEND Podiatrist Primary Podiatric Medicine
DX: L97.529 Non-pressure chronic ulcer of other part of left foot with unspecified severity (principal); M85.872 Other specified disorders of bone density and structure, left ankle and foot

== ENCOUNTER 2018-01-24 08:50 | Emergency (ER) | payer BC ==
[~2018-01-24] VITALS: Ht 193 cm; Wt 54.8 kg
[2018-01-24 09:13] VITALS: Ht 193 cm; Wt 54.8 kg
[2018-01-24] MEDS ORDERED: SODIUM CHLORIDE 0.9% 1000ML 1,000 ML IV STA (09:23)
[2018-01-24] MEDS ORDERED: LNX125 PO (09:25)
[2018-01-24] MEDS ORDERED: CPR/500 PO (09:25)
[2018-01-24] MEDS ORDERED: CRAN1CAP6 PO (09:25)
[2018-01-24] MEDS ORDERED: DILTIAZEM BOLUS / DRIP IV STA (09:25)
[2018-01-24] MEDS ORDERED: DILTIAZEM HCL 5 MG/ML 5 ML VIAL BOLUS/OMNI IV ONE (09:45)
[2018-01-24] MEDS ORDERED: DILTIAZEM HCL INJ 125 MG in DEXTROSE 5% 100ML IV PRN (09:45)
--- NOTE | 2018-01-24 10:11 | DIAGNOSTIC IMAGING REPORT ---
CHEST ONE VIEW PORTABLE CLINICAL HISTORY: 52 years-old Male presenting with Chest Pain. TECHNIQUE: Portable upright AP view of the chest was obtained. COMPARISON: 01/21/2017. FINDINGS: The patient is MILLAN rotated. Moderate cardiomegaly unchanged. Lungs remain hyperinflated. No superimposed opacity. No large effusion or pneumothorax. Osseous structures normal. Upper abdomen normal. IMPRESSION: 1. Hyperinflation suggests emphysema. No superimposed opacity. 2. Cardiomegaly. Electronically signed by: Vivek Lewis M.D. 01/24/2018 10:09 AM Dictated Date/Time: 01/24/2018 10:08 AM
[2018-01-24 10:21] LABS: BASO % 1.7 %; BASO ABS # 0.06 K/uL (0-0.2); EOS % 3.8 %; EOS ABS # 0.13 K/uL (0-0.5); HEMATOCRIT 35.7 % (42-52); HEMOGLOBIN 11.8 g/dL (14.0-18.0); IG# 0.01 K/uL (0.00-0.02); LYMPH % 25.3 %; LYMPH ABS # 0.87 K/uL (1.2-3.4); MEAN CELL VOLUME 87.1 fL (80-100); MEAN CORPUSCULAR HEMOGLOBIN 28.8 pg (25-34); MEAN CORPUSCULAR HGB CONC 33.1 g/dl (32-36); MEAN PLATELET VOLUME 10.9 fL (7.4-10.4); MONO % 6.4 %; MONO ABS # 0.22 K/uL (0.11-0.59); NEUT % 62.5 %; NEUT ABS # 2.15 K/uL (1.4-6.5); PLATELET COUNT 163 K/uL (130-400); RED CELL DISTRIBUTION WIDTH SD 44.9 fL (36.4-46.3); WHITE BLOOD COUNT 3.44 K/uL (4.8-10.8)
[2018-01-24 10:36] LABS: BLOOD UREA NITROGEN 10 mg/dl (7-18); CARBON DIOXIDE 27 mmol/L (21-32); CREATININE 0.44 mg/dl (0.60-1.40); GLUCOSE 80 mg/dl (70-99); POTASSIUM 4.2 mmol/L (3.5-5.1); SODIUM 139 mmol/L (136-145)
[2018-01-24 10:41] LABS: CKMB 1.8 ng/ml (0.5-3.6)
[2018-01-24] MEDS ORDERED: HEPARIN IV LOW DOSE NO BOLUS STA (12:23)
--- NOTE | 2018-01-24 12:48 | History and Physical ---
History & Physical Date & Time of Service: Jan 24, 2018 at 12:32 Chief Complaint: Heart Out Of Rhythm Primary Care Physician: Jarrell Bishop III, M.D. History of Present Illness Source: patient, clinic records, hospital records This is a 52-year-old male with a PMH of paroxysmal A. fib, paraplegia (s/p spinal cord injury to C4/C5 > 20 years ago), chronic UTI who presents with irregular heartbeat beginning during the night. Patient woke up with fluttering sensation in the chest with associated lightheadedness. Had difficulty sleeping. Denies overt chest pain but states that his heart feels "sore". Has experienced A. fib with RVR in the past, usually prompted by a urinary infection. Has successfully converted into sinus rhythm during past admissions after being given flecainide. Takes digoxin daily and has discussed the option of a flecainide "pill in pocket" strategy to use at home but does not feel comfortable taking medication outside of the hospital. Due to autonomic dysreflexia, HR drops as low as the 40s when patient straight caths with assistance. Takes a baby aspirin daily but is not on any other form of anticoagulation. Takes PO antibiotics for chronic UTI with associated intermittent lower abdominal pain. Currently taking Cipro. Noticed sediment in his urine over the weekend but denies any discoloration or hematuria. Follows with Dr. Chung and cardio clinic. Currently denies any fever, chills , headache, near syncope, visual changes, chest pain, shortness of breath, nausea or vomiting. Past Medical/Surgical History Medical Problems: (1) Autonomic dysfunction Status: Chronic (2) History of recurrent UTIs Status: Chronic (3) Hypotension Status: Chronic (4) Neurogenic bladder Status: Chronic (5) Paraplegia Status: Chronic (6) Paroxysmal atrial fibrillation Status: Chronic (7) Spinal cord injury Status: Chronic Family History FH: CAD (coronary artery disease) FATHER GRANDFATHER Social History Smoking Status: Never Smoker Alcohol Use: none Drug Use: none Marital Status: single Housing status: lives with family Occupational Status: employed Immunizations History of Influenza Vaccine: Yes Allergies Coded Allergies: Bacitracin (Verified Allergy, Unknown, blisters, 07/17/16) Iodinated Diagnostic Agents (Verified Allergy, Unknown, UNKNOWN, 07/17/16) Neomycin (Verified Allergy, Unknown, blisters, 07/17/16) Polymyxin B (Verified Allergy, Unknown, blisters, 07/17/16) Quinolones (Verified Allergy, Unknown, cipro OK [employer]OM [employer]ATOR [id number], 07/17/16) Home Medications Scheduled Aspirin (Aspirin Ec), 81 MG PO DAILY Ciprofloxacin (Ciprofloxacin HCl), 500 MG PO BID Cranberry (Vaccinium Macrocarp (Cranberry), 2 CAP PO TID Digoxin (Digoxin), 0.125 MG PO DAILY Metoclopramide (Reglan), 10 MG PO ACHS Sodium Phosphates (Fleet Enema Six Pack), 19 GM [place] Q2D Review of Systems Ten systems reviewed and negative except as noted in the HPI. Constitutional: No fever, No chills, No sweats, No weight loss, No fatigue Eyes: No worsening of vision, No diplopia ENT: No hearing loss, No unusual epistaxis, No nasal symptoms, No sore throat Respiratory: No cough, No sputum, No wheezing, No shortness of breath, No dyspnea on exertion, No dyspnea at rest Cardiovascular: + palpitations, No chest pain, No orthopnea, No PND, No edema Abdomen: + pain, + constipation (chronic ), No nausea, No vomiting, No diarrhea Genitourinary - Male: No hematuria, No dysuria, No urinary frequency, No urinary urgency Neurologic: + paralysis (lower extremity (chronic). Some motor function in arms ) Hematologic / Lymphatic: No abnormal bleeding/bruising, No clotting problems Physical Exam Vital Signs Date Time Temp Pulse Resp B/P (MAP) Pulse Ox O2 Delivery O2 Flow Rate FiO2 01/24/18 11:10 131 18 100/61 98 Room Air 01/24/18 10:40 46 01/24/18 09:15 121 01/24/18 09:13 120 16 91/47 99 Room Air 01/24/18 09:13 99 Room Air General Appearance: WD/WN, no apparent distress, + cachetic Head: normocephalic, atraumatic Eyes: normal inspection, PERRL, sclerae normal ENT: normal ENT inspection, hearing grossly normal, pharynx normal (Moist mucous membranes) Neck: supple, thyroid normal, trachea midline Respiratory/Chest: chest non-tender, lungs clear, normal breath sounds, no respiratory distress, no accessory muscle use Cardiovascular: no murmur, + tachycardia, + irregularly irregular Abdomen/GI: non tender, soft, no organomegaly Extremities/Musculoskelatal: no calf tenderness, + pertinent finding (Atrophy 2 /2 paraplegia ) Neurologic/Psych: alert, normal mood/affect, oriented x 3, + motor weakness ( chronic ) Skin: normal color, warm/dry, no rash Diagnostics Laboratory Results Results Past 24 Hours Test 01/24/18 10:10 01/24/18 11:20 Range/Units White Blood Count 3.44 4.8-10.8 K/uL Red Blood Count 4.10 4.7-6.1 M/uL Hemoglobin 11.8 14.0-18.0 g/dL Hematocrit 35.7 42-52 % Mean Corpuscular Volume 87.1 80-100 fL Mean Corpuscular Hemoglobin 28.8 25-34 pg Mean Corpuscular Hemoglobin Concent 33.1 32-36 g/dl Platelet Count 163 130-400 K/uL Mean Platelet Volume 10.9 7.4-10.4 fL Neutrophils (%) (Auto) 62.5 % Lymphocytes (%) (Auto) 25.3 % Monocytes (%) (Auto) 6.4 % Eosinophils (%) (Auto) 3.8 % Basophils (%) (Auto) 1.7 % Neutrophils # (Auto) 2.15 1.4-6.5 K/uL Lymphocytes # (Auto) 0.87 1.2-3.4 K/uL Monocytes # (Auto) 0.22 0.11-0.59 K/uL Eosinophils # (Auto) 0.13 0-0.5 K/uL Basophils # (Auto) 0.06 0-0.2 K/uL RDW Standard Deviation 44.9 36.4-46.3 fL RDW Coefficient of Variation 14.0 11.5-14.5 % Immature Granulocyte % (Auto) 0.3 % Immature Granulocyte # (Auto) 0.01 0.00-0.02 K/uL Sodium Level 139 136-145 mmol/L Potassium Level 4.2 3.5-5.1 mmol/L Chloride Level 107 98-107 mmol/L Carbon Dioxide Level 27 21-32 mmol/L Anion Gap 5.0 3-11 mmol/L Blood Urea Nitrogen 10 7-18 mg/dl Creatinine 0.44 0.60-1.40 mg/dl Est Creatinine Clear Calc Drug Dose 155.7 ml/min Estimated GFR () > 150.0 Estimated GFR (Non- 133.2 BUN/Creatinine Ratio 23.3 10-20 Random Glucose 80 70-99 mg/dl Calcium Level 8.0 8.5-10.1 mg/dl Magnesium Level 2.3 1.8-2.4 mg/dl Total Creatine Kinase 80 39-308 U/L Creatine Kinase MB 1.8 0.5-3.6 ng/ml Creatine Kinase MB Ratio 2.3 0-3.0 Troponin I < 0.015 0-0.045 ng/ml Digoxin Level 1.3 0.8-2.0 ng/ml Urine Color YELLOW Urine Appearance CLEAR CLEAR Urine pH 7.5 4.5-7.5 Urine Specific [place] 1.008 1.000-1.030 Urine Protein NEG NEG Urine Glucose (UA) NEG NEG Urine Ketones NEG NEG Urine Occult Blood NEG NEG Urine Nitrite NEG NEG Urine Bilirubin NEG NEG Urine Urobilinogen NEG NEG Urine Leukocyte Esterase NEG NEG Diagnostic Radiology CXR: IMPRESSION: 1. Hyperinflation suggests emphysema. No superimposed opacity. 2. Cardiomegaly. EKG Atrial fibrillation with rapid ventricular response at 124 bpm Incomplete right bundle branch block Septal infarct (cited on or before 17-JUL-2016) Lateral infarct (cited on or before 14-MAR-2016) ST & T wave abnormality, consider anterior ischemia Impression Assessment and Plan This is a 52-year-old male with a PMH of paroxysmal A. fib, paraplegia (s/p spinal cord injury to C4/C5 > 20 years ago), chronic UTI who presents with irregular heartbeat beginning during the night and was found to have A Fib with RVR. A Fib with RVR: -H/o paroxysmal A. fib -HR in 120s-130s upon arrival -Electrolytes, TSH, digoxin level all wnl -5 mg bolus Cardizem given in ED -HR decreased to 80-100 -SBP decreased to 90s -Low dose heparin initiated -Cardio consulted for further recommendations -Monitor on telemetry -Initial trop wnl -Echo Chronic UTI: -2/2 neurogenic bladder -UA without infection -Cont home dose cipro Paraplegia: -Bowel prep per home regimen -Straight cath PRN DVT Ppx: IV heparin Code status: FULL PCP: [facility] Dispo: Admitted to telemetry. Discharge planning ordered. Patient seen in collaboration with Dr. Lisa. Please see addendum. Attending Note: Patient is a 52 yr male with PMH of Quadriplegia secondary to C4-C5 Injury many years ago, Recurrent UTIs on PO antibiotics, Neurogenic bladder, Chronic P.afib currently not on penitentiary anticoagulation secondary to low CHADS2 score, chronic hypotension secondary to autonomic dysfunction presents with history of palpitations and mild left sided sore chest which started overnight. Patient describes chest soreness/discomfort as 1/10, non radiating, no aggravating/ relieving factors, associated with palpitations. Also reports chronic suprapubic discomfort which he attributes to recurrent UTIs and secondary to straight caths. Takes medications regularly. Currently on Ciprofloxacin as per 's recommendations. Physical Exam: Vitals signs as noted above General Appearance:Thin, Frail, no apparent distress Head: normocephalic, Atraumatic Eyes: normal inspection, EOMI, PERRL Neck: supple, Trachea midline Respiratory/Chest: Normal breath sounds, CTA Cardiovascular: Irregularly Irregular, No murmur Abdomen/GI:Soft, Non tender, Bowel sounds present Extremities/Musculoskelatal:+Muscle atrophy, no edema, Quadriplegia Neurologic/Psych:AAOX3, Quadriplegia Skin:normal color,warm Assessment and Plan: P.Afib RVR H/O afib, not on chronic anticoagulation Received Cardizem, IV fluids in ED Spontaneously converted to sinus after Flecainide use in the past Continue Aspirin, Digoxin Start on Low dose Heparin Currently rate is controlled Normal TSH, Digoxin, Electrolytes 1st set of Troponin Normal Update ECHO Trend Troponin, repeat EKG Cardiology consulted recurrent UTI Continue Cipro for 1 more week as per 's recommendations Protein Calorie Malnutrition: BMI:14.7 Retrimmer consulted I personally reviewed the record. Patient is interviewed and examined at bedside. Patient's care is coordinated with Colleen Flores PA-C. Please refer to the documentation above for details of patient's presentation and for discussion of other issues. Resuscitation Status VTE Prophylaxis Will order VTE Prophylaxis: Yes
[2018-01-24] MEDS ORDERED: CRANBERRY PO SCH (14:00)
[2018-01-24] MEDS ORDERED: FLECAINIDE ACETATE 100 MG TAB PO ONE (14:15)
[2018-01-24] MEDS ORDERED: HEPARIN 25000 UNIT/500 ML D5W ONE (14:22)
--- NOTE | 2018-01-24 14:41 | EMERGENCY ROOM VISIT NOTE ---
History Report prepared by Chaiibalonzo: Myles Cortes Under the Supervision of: Dr. Clyde Avalos D.O. First contact with patient: 09:05 Chief Complaint: TACHYCARDIA Stated Complaint: HEART OUT OF RHYTHM History of Present Illness The patient is a 52 year old male who presents to the Emergency Room with complaints of constant heart palpitations beginning five hours ago. He has a history of quadriplegia. He describes the sensation as a "fluttering" in his chest. The patient cannot feel the sensation currently. He states that his symptoms began during the middle of the night. He states that he went back to sleep, but still has it upon waking up. The patient also complains of chest "soreness". He has a history of chronic UTI which he associates with abdominal pain. He has a history of A-fib, and states that UTI's occasionally put him into A-fib. The patient is on aspirin, but denies any other blood thinner use. His pain is currently a 0 out of 10. Source of History: patient Onset: Five hours ago Position: chest Quality: other ("fluttering") Timing: constant Associated Symptoms: + chest pain ("soreness") Review of Systems See HPI for pertinent positives & negatives. A total of 10 systems reviewed and were otherwise negative. Past Medical & Surgical Medical Problems: (1) Autonomic dysfunction (2) History of recurrent UTIs (3) Hypotension (4) Neurogenic bladder (5) Paraplegia (6) Paroxysmal atrial fibrillation (7) Protein-calorie malnutrition, severe (8) Spinal cord injury Family History FH: CAD (coronary artery disease) FATHER GRANDFATHER Social History Smoking Status: Never Smoker Drug Use: none Marital Status: single Housing Status: lives with family Occupation Status: employed Current/Historical Medications Scheduled Aspirin (Aspirin Ec), 81 MG PO DAILY Ciprofloxacin (Ciprofloxacin HCl), 500 MG PO BID Cranberry (Vaccinium Macrocarp (Cranberry), 2 CAP PO TID Digoxin (Digoxin), 0.125 MG PO DAILY Metoclopramide (Reglan), 10 MG PO ACHS Sodium Phosphates (Fleet Enema Six Pack), 19 GM [place] Q2D Allergies Coded Allergies: Bacitracin (Verified Allergy, Unknown, blisters, 07/17/16) Iodinated Diagnostic Agents (Verified Allergy, Unknown, UNKNOWN, 07/17/16) Neomycin (Verified Allergy, Unknown, blisters, 07/17/16) Polymyxin B (Verified Allergy, Unknown, blisters, 07/17/16) Quinolones (Verified Allergy, Unknown, cipro [place] DATA [employer]ER [id number], 07/17/16) Physical Exam Vital Signs Date Time Temp Pulse Resp B/P (MAP) Pulse Ox O2 Delivery O2 Flow Rate FiO2 01/24/18 13:15 115 18 91/61 96 Room Air 01/24/18 12:46 114 01/24/18 11:10 131 18 100/61 98 Room Air 01/24/18 10:40 46 01/24/18 09:15 121 01/24/18 09:13 120 16 91/47 99 Room Air 01/24/18 09:13 99 Room Air Physical Exam GENERAL: Laying in bed, contractures of upper and lower extremities, cachectic, malnourished. EYE EXAM: normal conjunctiva. OROPHARYNX: no exudate, no erythema, lips, buccal mucosa, and tongue normal and mucous membranes are moist NECK: supple, no nuchal rigidity, no adenopathy, non-tender LUNGS: Clear to auscultation. Normal chest wall mechanics HEART: Tachycardic rate, irregularly irregular rhythm, no murmurs, S1 normal and S2 normal ABDOMEN: abdomen soft, non-tender, normo-active bowel sounds, no masses, no rebound or guarding. BACK: Back is symmetrical on inspection and there is no deformity, no midline tenderness, no CVA tenderness. SKIN: no rashes and no bruising UPPER EXTREMITIES: upper extremities are grossly normal. LOWER EXTREMITIES: No pitting edema. NEURO EXAM: Normal sensorium with contractures. Medical Decision & Procedures ER Provider Diagnostic Interpretation: Radiology results as stated below per my review and the radiologist's interpretation: CHEST ONE VIEW PORTABLE FINDINGS: The patient is MILLAN rotated. Moderate cardiomegaly unchanged. Lungs remain hyperinflated. No superimposed opacity. No large effusion or pneumothorax. Osseous structures normal. Upper abdomen normal. IMPRESSION: 1. Hyperinflation suggests emphysema. No superimposed opacity. 2. Cardiomegaly. Electronically signed by: Vivek Lewis M.D. 01/24/2018 10:09 AM Laboratory Results 01/24/18 10:10 Red Blood Count 4.10, Mean Corpuscular Volume 87.1, Mean Corpuscular Hemoglobin 28.8, Mean Corpuscular Hemoglobin Concent 33.1, Mean Platelet Volume 10.9, Neutrophils (%) (Auto) 62.5, Lymphocytes (%) (Auto) 25.3, Monocytes (%) (Auto) 6.4, Eosinophils (%) (Auto) 3.8, Basophils (%) (Auto) 1.7, Neutrophils # (Auto) 2.15, Lymphocytes # (Auto) 0.87, Monocytes # (Auto) 0.22, Eosinophils # (Auto) 0.13, Basophils # (Auto) 0.06 01/24/18 10:10 Test 01/24/18 10:10 01/24/18 11:20 White Blood Count 3.44 K/uL (4.8-10.8) Red Blood Count 4.10 M/uL (4.7-6.1) Hemoglobin 11.8 g/dL (14.0-18.0) Hematocrit 35.7 % (42-52) Mean Corpuscular Volume 87.1 fL (80-100) Mean Corpuscular Hemoglobin 28.8 pg (25-34) Mean Corpuscular Hemoglobin Concent 33.1 g/dl (32-36) Platelet Count 163 K/uL (130-400) Mean Platelet Volume 10.9 fL (7.4-10.4) Neutrophils (%) (Auto) 62.5 % Lymphocytes (%) (Auto) 25.3 % Monocytes (%) (Auto) 6.4 % Eosinophils (%) (Auto) 3.8 % Basophils (%) (Auto) 1.7 % Neutrophils # (Auto) 2.15 K/uL (1.4-6.5) Lymphocytes # (Auto) 0.87 K/uL (1.2-3.4) Monocytes # (Auto) 0.22 K/uL (0.11-0.59) Eosinophils # (Auto) 0.13 K/uL (0-0.5) Basophils # (Auto) 0.06 K/uL (0-0.2) RDW Standard Deviation 44.9 fL (36.4-46.3) RDW Coefficient of Variation 14.0 % (11.5-14.5) Immature Granulocyte % (Auto) 0.3 % Immature Granulocyte # (Auto) 0.01 K/uL (0.00-0.02) Anion Gap 5.0 mmol/L (3-11) Est Creatinine Clear Calc Drug Dose 155.7 ml/min Estimated GFR () > 150.0 Estimated GFR (Non- 133.2 BUN/Creatinine Ratio 23.3 (10-20) Calcium Level 8.0 mg/dl (8.5-10.1) Magnesium Level 2.3 mg/dl (1.8-2.4) Total Creatine Kinase 80 U/L (39-308) Creatine Kinase MB 1.8 ng/ml (0.5-3.6) Creatine Kinase MB Ratio 2.3 (0-3.0) Troponin I < 0.015 ng/ml (0-0.045) Thyroid Stimulating Hormone (TSH) 2.180 uIu/ml (0.300-4.500) Digoxin Level 1.3 ng/ml (0.8-2.0) Urine Color YELLOW Urine Appearance CLEAR (CLEAR) Urine pH 7.5 (4.5-7.5) Urine Specific [place] 1.008 (1.000-1.030) Urine Protein NEG (NEG) Urine Glucose (UA) NEG (NEG) Urine Ketones NEG (NEG) Urine Occult Blood NEG (NEG) Urine Nitrite NEG (NEG) Urine Bilirubin NEG (NEG) Urine Urobilinogen NEG (NEG) Urine Leukocyte Esterase NEG (NEG) Laboratory results per my review. Medications Administered Medications (Trade) Dose Ordered Sig/Valeria Route Start Time Stop Time Status Last Admin Dose Admin Sodium Chloride 1,000 ml @ 999 mls/hr Q1H1M STAT IV 01/24/18 09:23 01/24/18 10:23 DC 01/24/18 10:16 999 MLS/HR Diltiazem HCl (Cardizem Inj) 10 mg TODAY@0945 ONCE IV 01/24/18 09:45 01/24/18 09:46 DC 01/24/18 11:17 5 MG ECG Per My Interpretation Indication: palpitations Rate (beats per minute): 130 Rhythm: atrial fibrillation (with RVR) Findings: RBBB, T-wave inversion (Septal) Change: Repeat ECG shows A-fib with RVR (rate of 124). Normal axis. TWI in the septal leads. ED Course ED COURSE: Vital signs were reviewed and showed tachycardia and hypotension. The patients medical record was reviewed The above diagnostic studies were performed and reviewed. ED treatments and interventions as stated above. 0913: The patient was evaluated in room A12B. A complete history and physical examination was performed. 0923: Ordered Sodium Chloride 1000 ml @ 999 mls/hr IV. 0925: Ordered Cardizem Drip/Bolus IV. 1120: Upon reevaluation, the patient is resting comfortably. I discussed my findings with the patient and he understands and agrees with the treatment plan. Based on the patients age, coexisting illnesses, exam and lab findings the decision to treat as an inpatient was made. The patient remained stable while under my care. The patient will be evaluated for further management. Medical Decision Differential diagnosis includes etiologies such as premature contractions, electrolyte abnormality, cardiac dysrhythmia, thyroid dysfunction, pulmonary embolism, infection, gastrointestinal, as well as others were entertained. Patient is a 52-year-old male who presents the ER who is a quadriplegic for palpitations. Upon presentation he is in A. fib with RVR and heart rates in the 140s. CBC along with BMP, troponin and TSH were unremarkable. UA was negative. Patient does have autonomic dysfunction and following catheterization heart rate dropped into the 40s. Cardizem drip and bolus were held but his heart rate trended back up into the 130s. He was placed on a Cardizem drip and bolus. He was discussed with internal medicine and admitted for further workup. He remained stable on the ER with systolic pressures in the 90s to low 100s which are consistent with his baseline. Medication Reconcilliation Current Medication List: was personally reviewed by me Blood Pressure Screening Patient's blood pressure: Low blood pressure Blood pressure disposition: Did not require urgent referral Consults Time Called: 1120 Consulting Physician: Colleen Nelson Hospitalist Returned Call: 1125 I reviewed the patient's case with Colleen Nelson will evaluate the patient for further management. Impression Primary Impression: Atrial fibrillation with RVR Critical Care I have personally spent 35 minutes of critical care time in the direct management of this patient. This includes bedside care, interpretation of diagnostic studies, and testing, discussion with consultants, patient, and family members, and other required patient management activities. This 35 minutes is in excess of all separately billable procedures. Scribe Attestation The scribe's documentation has been prepared under my direction and personally reviewed by me in its entirety. I confirm that the note above accurately reflects all work, treatment, procedures, and medical decision making performed by me. Departure Information Dispostion Being Evaluated By Hospitalist Referrals Jarrell Bishop III, M.D. (PCP) Patient Instructions My [facility]
[2018-01-24] MEDS ORDERED: HEPARIN 25,000 UNIT/500ML D5W 500 ML IV SCH (14:45)
--- NOTE | 2018-01-24 15:37 | Discharge Summary ---
Discharge Summary Date of Service Jan 24, 2018. Discharge Summary Admission Date: Discharge Date: Jan 24, 2018 Discharge Disposition: Home Principal Diagnosis: A Fib with RVR Secondary Diagnoses/Problems: Paraplegia (s/p spinal cord injury to C4-C5), recurrent UTI Procedures: Chest XR: IMPRESSION: 1. Hyperinflation suggests emphysema. No superimposed opacity. 2. Cardiomegaly. Consultations: cardiology Pending Studies/Follow-Up: Patient to follow up with PCP Dr. Bishop on MondayJanuary 30, 10:45am. Follow up with your semiconductor processing technician (Dr. Chung) in 2 weeks (call for appointment) . Medication Reconciliation Continued Medications: Aspirin (Aspirin Ec) 81 Mg Tab 81 MG PO DAILY Ciprofloxacin (Ciprofloxacin HCl) 500 Mg Tab 500 MG PO BID Cranberry (Vaccinium Macrocarp (Cranberry) 250 Mg Cap 2 CAP PO TID Digoxin (Digoxin) 0.125 Mg Tab 0.125 MG PO DAILY Metoclopramide (Reglan) 10 Mg Tab 10 MG PO ACHS, TAB Sodium Phosphates (Fleet Enema Six Pack) 1 Estela Estela 19 GM CO Q2D Admission Information HPI (per Admitting provider): This is a 52-year-old male with a PMH of paroxysmal A. fib, paraplegia (s/p spinal cord injury to C4/C5 > 20 years ago), chronic UTI who presents with irregular heartbeat beginning during the night. Patient woke up with fluttering sensation in the chest with associated lightheadedness. Had difficulty sleeping. Denies overt chest pain but states that his heart feels "sore". Has experienced A. fib with RVR in the past, usually prompted by a urinary infection. Has successfully converted into sinus rhythm during past admissions after being given flecainide. Takes digoxin daily and has discussed the option of a flecainide "pill in pocket" strategy to use at home but does not feel comfortable taking medication outside of the hospital. Due to autonomic dysreflexia, HR drops as low as the 40s when patient straight caths with assistance. Takes a baby aspirin daily but is not on any other form of anticoagulation. Takes PO antibiotics for chronic UTI with associated intermittent lower abdominal pain. Currently taking Cipro. Noticed sediment in his urine over the weekend but denies any discoloration or hematuria. Follows with Dr. Chung and cardio clinic. Currently denies any fever, chills , headache, near syncope, visual changes, chest pain, shortness of breath, nausea or vomiting. Physical Exam (per Admitting): General Appearance: WD/WN, no apparent distress, + cachetic Head: normocephalic, atraumatic Eyes: normal inspection, PERRL, sclerae normal ENT: normal ENT inspection, hearing grossly normal, pharynx normal (Moist mucous membranes) Neck: supple, thyroid normal, trachea midline Respiratory/Chest: chest non-tender, lungs clear, normal breath sounds, no respiratory distress, no accessory muscle use Cardiovascular: no murmur, + tachycardia, + irregularly irregular Abdomen/GI: non tender, soft, no organomegaly Extremities/Musculoskelatal: no calf tenderness, + pertinent finding ( Atrophy 2/2 paraplegia ) Neurologic/Psych: alert, normal mood/affect, oriented x 3, + motor weakness (chronic ) Skin: normal color, warm/dry, no rash Hospital Course This is a 52-year-old male with a PMH of paroxysmal A. fib, paraplegia (s/p spinal cord injury to C4/C5 > 20 years ago), chronic UTI who presents with irregular heartbeat beginning during the night and was found to have A Fib with RVR. A Fib with RVR: -H/o paroxysmal A. fib -HR in 120s-130s upon arrival -Electrolytes, TSH, digoxin level all wnl -5 mg bolus Cardizem given in ED -HR decreased to 80-100 -SBP decreased to 90s -Low dose heparin initiated -Cardio consulted -Given flecainide 100mg PO with successful conversion to NSR -Repeat EKG with normal sinus rhythm at 64 bpm -Okay to be discharged home from ED Recurrent UTI: -2/2 neurogenic bladder -UA without infection -Cont home dose cipro Paraplegia: -Bowel prep per home regimen -Straight cath PRN Total time spent on discharge = This includes examination of the patient, discharge planning, medication reconciliation, and communication with other providers. Discharge Instructions Discharge Instructions Date of Service Jan 24, 2018. Admission Reason for Admission: Heart out of rhythm Discharge Discharge Diagnosis / Problem: A Fib with RVR Discharge Goals Goal(s): Decrease discomfort Activity Recommendations Activity Limitations: resume your previous activity . Instructions / Follow-Up Instructions / Follow-Up Patient to follow up with PCP Dr. Bishop on [address] 3rd, 10:45am. Follow up with your semiconductor processing technician (Dr. Chung) in 2 weeks (call for appointment) . Continue currently scheduled medications at home. No new medications were prescribed. Current Hospital Diet Patient's current hospital diet: Regular Diet Discharge Diet Recommended Diet: Regular Diet Pending Studies Studies pending at discharge: no Medical Emergencies . Who to Call and When: Medical Emergencies: If at any time you feel your situation is an emergency, please call 911 immediately. . Non-Emergent Contact Non-Emergency issues call your: Primary Care Provider . Past History Medical & Surgical History: (1) History of recurrent UTIs (2) Paroxysmal atrial fibrillation (3) Neurogenic bladder (4) Autonomic dysfunction (5) Spinal cord injury (6) Hypotension (7) Protein-calorie malnutrition, severe (8) Paraplegia (9) Atrial fibrillation with RVR . "Provider Documentation" section prepared by Colleen Flores. Additional Copies To Tino Chung D.O. Piatt, Jarrell Stephens III, M.D.
--- NOTE | 2018-01-24 15:56 | Discharge Instructions ---
Discharge Instructions Date of Service Jan 24, 2018. Admission Reason for Admission: Heart out of rhythm Discharge Discharge Diagnosis / Problem: A Fib with RVR Discharge Goals Goal(s): Decrease discomfort Activity Recommendations Activity Limitations: resume your previous activity Exercise/Sports Limitations: as tolerated . Instructions / Follow-Up Instructions / Follow-Up Patient to follow up with PCP Dr. Bishop on MondayJanuary 30, 10:45am. Follow up with your ramp jockey (Dr. Chung) in 2 weeks (call for appointment) . Continue currently scheduled medications at home. No new medications were prescribed. Current Hospital Diet Patient's current hospital diet: Regular Diet Discharge Diet Recommended Diet: Regular Diet Pending Studies Studies pending at discharge: no Medical Emergencies . Who to Call and When: Medical Emergencies: If at any time you feel your situation is an emergency, please call 911 immediately. . Non-Emergent Contact Non-Emergency issues call your: Primary Care Provider, Retread Technician Call Non-Emergent contact if: you have a fever, your pain is not controlled, your pain is worsening, your pain is unusual for you, your pain is concerning you, you have any medication questions Seek immediate medical attention if your symptoms reoccur or worsen . Past History Medical & Surgical History: (1) History of recurrent UTIs (2) Paroxysmal atrial fibrillation (3) Neurogenic bladder (4) Autonomic dysfunction (5) Spinal cord injury (6) Hypotension (7) Protein-calorie malnutrition, severe (8) Paraplegia (9) Atrial fibrillation with RVR . "Provider Documentation" section prepared by Colleen Flores. .
[2018-01-24] MEDS ORDERED: METOCLOPRAMIDE HCL 10 MG TAB PO SCH (16:00)
[2018-01-24] MEDS ORDERED: DIGOXIN 0.125 MG TAB PO SCH (16:00)
[2018-01-24] MEDS ORDERED: IV FLUIDS COMPLETED PRN (16:15)
[2018-01-24 16:44] VITALS: BP 92/62; PULSE 67; TEMP 36.9; O2SAT 98
--- NOTE | 2018-01-24 17:09 | CARDIOLOGY CONSULTATION ---
DATE OF CONSULTATION: 01/24/2018 REFERRING: Dr. Colleen Flores. PRIMARY CARE PHYSICIAN: Dr. Jarrell Bishop. REFERRAL DIAGNOSIS: Atrial fibrillation, paroxysmal, new onset. HISTORY OF PRESENT ILLNESS: The patient is a 52-year-old male whose history is notable for paroxysmal atrial fibrillation with CHADS2 score of 0, past treated with a pill in the pocket approach. His underlying medical problems are substantial include chronic urinary tract infections secondary to chronic quadriplegia, traumatic of multiple years' duration, past autonomic dysfunction with transient bradycardia and hypotension secondary to spinal cord injury. The patient presents this admission notes having awakened early this morning shortly after 3:00 a.m. with sense of tachypalpitations consistent with patient's past atrial fibrillation. He presented to the Emergency Room where in atrial fibrillation, elevated ventricular response was observed. He received a single 5 mg bolus of IV diltiazem with transient hypotension and bradycardia. He was referred for further evaluation. He notes possible irritation of chronic urinary tract infection. Notes no febrile illness or complaints. Notes no chest pains or discomfort. Notes no orthopnea. Notes no peripheral edema. Does have chronic urinary tract infections and chronic spasticity. He is currently taking oral Cipro. REVIEW OF SYSTEMS: As per HPI. PAST MEDICAL HISTORY: As noted, described prior C4-5 traumatic spinal cord injury with quadriplegia and chronic autonomic dysfunction. ALLERGIES: BACITRACIN, IODINE, NEOMYCIN, POLYMYXIN QUINOLONES. MEDICATIONS: Notable for aspirin, Cipro, digoxin, and metoclopramide. PAST SURGICAL HISTORY: Notable for neck stabilization surgery, prior bladder procedures. FAMILY HISTORY: Noncontributory. SOCIAL HISTORY: The patient lives with family, is a nonsmoker and nondrinker. PHYSICAL EXAMINATION: VITAL SIGNS: On presentation, heart rate was 120, blood pressure 91/47. HEENT: Normocephalic, atraumatic. NECK: Thin. There is no jugular venous distention. LUNGS: Reveal good aeration to the bases. Overall appearance of cachexia and muscle wasting present throughout body. CARDIOVASCULAR: Irregularly irregular. There is no S3 gallop. ABDOMEN: Soft, nontender. EXTREMITIES: Without significant edema. There is mild contraction changes of lower extremities and upper extremities. LABORATORY DATA: White cell count is 3.4, hemoglobin is 11.8. Sodium is 139, potassium is 4.2, chloride is 107, bicarbonate is 27, BUN is 10, creatinine is 0.44, magnesium is 2.3. TSH is 2.18. IMAGING DATA: EKG on presentation revealed atrial fibrillation with rapid ventricular response, rate 131. Incomplete right bundle branch block, lateral ST segment changes as per prior studies. IMPRESSION: A 52-year-old male with known history of paroxysmal atrial fibrillation, presents now with relapse earlier this morning. He carries a CHADS2-VASc score of 0, has not been on anticoagulation due to such as well as due to concerns regarding its use both by patient and physicians, presents now with abrupt onset atrial fibrillation earlier today. Prior medications have been poorly tolerated, Cardizem today resulted in hypotension and bradycardia transiently. RECOMMENDATIONS: We will observe the patient in the ER and after 2 hours administration of IV diltiazem bolus, will administer patient's pill in pocket approach with flecainide 100 mg p.o. and 250 mL bolus of saline was given. ADDENDUM: After above completed, the patient converted spontaneously to sinus rhythm. EKG post-procedure demonstrates sinus rhythm with incomplete right bundle branch block, right ventricular hypertrophy pattern, T waves laterally unchanged from prior tracings. QT corrected is 400, rate 64 beats per minute. RECOMMENDATIONS: The patient to be observed another 60 minutes in the Emergency Room and then discharged home to usual care and medications with follow up with primary care, Dr Bishop and Dr. Chung, primary human resources team member, as previously scheduled. I have noted the patient should have further single event, I would approach in a similar manner with pill in pocket approach to be administered in the ER setting.
[2018-01-24] MEDS ORDERED: CIPROFLOXACIN 500 MG TAB PO SCH (21:00)
[2018-01-25] MEDS ORDERED: ASPIRIN 81 MG ECTAB PO SCH (09:00)
== END 2018-01-24 16:45 | disposition home or self-care (01) ==
LOC: C.EDB 08:52 → ENRESERV 13:50 → CANRESERV 13:50 → ENRESERV 14:18 → CANRESERV 14:18 → CANBEDREQ 15:51 → C.EDA 16:45
DX: I48.0 Paroxysmal atrial fibrillation (principal); G82.50 Quadriplegia, unspecified; Z87.440 Personal history of urinary (tract) infections; F45.8 Other somatoform disorders; N31.9 Neuromuscular dysfunction of bladder, unspecified; E43 Unspecified severe protein-calorie malnutrition; Z79.82 Long term (current) use of aspirin; Z79.899 Other long term (current) drug therapy; Z82.49 Family history of ischemic heart disease and other diseases of the circulatory system; Z88.1 Allergy status to other antibiotic agents; Z88.8 Allergy status to other drugs, medicaments and biological substances; Z91.041 Radiographic dye allergy status